=== PATIENT | female | born 1970 | race Caucasian/White ===

== ENCOUNTER 2020-04-06 12:47 | Outpatient (REF) | payer MEDICARE, MEDICAID, SELFPAY ==
--- NOTE | 2020-04-06 12:53 | MM_ITS ---
EXAMINATION: MM SCREENING DIGITAL BREAST TOMOSYNTHESIS, BILATERAL CLINICAL INFORMATION: Screening. Asymptomatic. The lifetime risk of breast cancer based on the Tyrer-Cuzick Model is 28%. COMPARISON: Mammography: 04/03/2017, 08/29/2014 TECHNIQUE: Digital breast tomosynthesis is performed in both the craniocaudal and mediolateral oblique views along with computer-aided detection (CAD). Synthesized 2D images are generated from the tomosynthesis. FINDINGS: There are scattered areas of fibroglandular density (ACR BI-RADS breast composition Category b). Breast tissue composition borders on predominantly fatty. Small asymmetry central right breast on CC view is stable from prior exams. Neither breast shows interval mass or architectural abnormality or developing density. No abnormal calcifications. Bilateral axillary nodes with abundant fatty jolene are stable. The skin contours are smooth. MM/MM tomosynthesis screening BI IMPRESSION: No significant changes from prior exams. ASSESSMENT: BI-RADS 2: Benign RECOMMENDATION: 1. Routine annual mammography screening. 2. The lifetime risk of breast cancer based on the Tyrer-Cuzick Model is 28%. Additional annual adjunct screening with breast MRI may be of benefit in women with a risk score of 20% or greater. This patient's information was entered into a reminder system with a target due date for their next mammogram.
== END 2020-04-06 12:48 | disposition home or self-care (01) ==
LOC: HO.MAMMO 12:47
PROVIDERS: PCP Internal Medicine; Visit Provider Internal Medicine
DX: Z12.31 Encounter for screening mammogram for malignant neoplasm of breast (principal)
CPT/HCPCS: 77063; 77067

== ENCOUNTER 2022-08-26 13:21 | Outpatient (REF) | payer MEDICARE, MEDICAID, SELFPAY ==
--- NOTE | ~2022-08-26 | MM_ITS ---
EXAMINATION: MM SCREENING DIGITAL BREAST TOMOSYNTHESIS, BILATERAL CLINICAL INFORMATION: Screening. Asymptomatic. The lifetime risk of breast cancer based on the Tyrer-Cuzick Model is 4%. COMPARISON: Mammography: 04/06/2020, 04/03/2017 TECHNIQUE: Digital breast tomosynthesis is performed in both the craniocaudal and mediolateral oblique views along with computer-aided detection (CAD). Synthesized 2D images are generated from the tomosynthesis. FINDINGS: There are scattered areas of fibroglandular density (ACR BI-RADS breast composition Category b). Breast tissue composition borders on predominantly fatty. Background stromal and fibroglandular densities are similar to prior studies. There is no developing density or interval architectural abnormality. There are no significant masses, abnormal calcifications, or other abnormalities. The axilla and skin contours are unremarkable. MM/MM tomosynthesis screening BI IMPRESSION: No mammographic evidence of malignancy. ASSESSMENT: BI-RADS 1: Negative RECOMMENDATION: Routine annual mammography screening. This patient's information was entered into a reminder system with a target due date for their next mammogram.
== END 2022-08-26 13:22 | disposition home or self-care (01) ==
LOC: HO.MAMMO 13:21
PROVIDERS: PCP Registered Nurse; Visit Provider Registered Nurse
DX: Z12.31 Encounter for screening mammogram for malignant neoplasm of breast (principal)
CPT/HCPCS: 77063; 77067

== ENCOUNTER 2023-07-31 10:11 | Outpatient (REF) | payer MEDICARE, MEDICAID, SELFPAY | END 2023-07-31 10:12 | disposition home or self-care (01) | LOC: HO.HHCL 10:11 | PROVIDERS: Visit Provider Nurse Practitioner Family | DX: N39.45 Continuous leakage (principal) | CPT/HCPCS: 87086 ==

== ENCOUNTER 2024-04-20 12:12 | Outpatient (REF) | payer MEDICARE, MEDICAID, SELFPAY ==
[2024-04-20 13:41] LABS: MANUAL DIFF FLAG NO
[2024-04-20 13:45] LABS: Creatinine Urine 60.77 mg/dL; Microalbum/Creatinine Ratio Ur 8.2 ug/mg cr (<30)
[2024-04-20 13:51] LABS: Basophils Absolute Auto 0.1 X10*3/uL (0.0-0.2); Basophils Percent Auto 0.5 % (0-2); Eosinophils Absolute Auto 0.3 X10*3/uL (0.0-0.4); Eosinophils Percent Auto 2.3 % (0-4); Hematocrit 39.6 % (37.0-47.0); Imm Gran Abs Auto 0.04 X10*3/uL (0.00-0.03); Imm Gran Pct Auto 0.3 % (0.0-0.4); Lymphocytes Absolute Auto 3.6 X10*3/uL (1.2-4.9); Lymphocytes Percent Auto 29.7 % (20-40); Mean Corpuscular HGB Conc 32.8 g/dl (31.0-35.0); Mean Corpuscular Volume 85.2 fL (80.0-98.0); Mean Platelet Volume 11.1 fL (9.4-12.3); Monocytes Absolute Auto 0.7 X10*3/uL (0.1-1.2); Monocytes Percent Auto 5.4 % (2-11); Neutrophils Absolute Auto 7.5 x10*3/uL (2.0-8.3); Neutrophils Percent Auto 61.8 % (45-73); Platelet Count 257 X10*3/uL (160-400); Red Blood Count 4.65 X10*6/uL (4.20-5.50); Red Cell Distribution Width 13.7 % (11.0-16.0); White Blood Count 12.1 X10*3/uL (4.8-10.8)
[2024-04-20 14:13] LABS: Alanine Aminotransferase 20 U/L (0-31); Albumin Level 4.3 g/dL (3.5-5.0); Alkaline Phosphatase 81 U/L (39-117); Anion Gap 8 (12-20); Aspartate Amino Transferase 18 U/L (5-31); Bilirubin Total 0.4 mg/dL (0.0-1.0); Blood Urea Nitrogen 14 mg/dL (9-16); Calcium 10.2 mg/dL (8.4-10.2); Carbon Dioxide 25 mmol/L (22-29); Chloride 109 mmol/L (96-108); Cholesterol 148 mg/dL (<200); Estimated Glomerular Filt Rate > 60; Glucose Random 68 mg/dL (60-115); HDL Cholesterol 40 mg/dL (>40); LDL Cholesterol Calculated 79 mg/dL (<100); Potassium 3.4 mmol/L (3.3-5.1); Sodium 139 mmol/L (135-145); Total Protein 7.3 g/dL (6.5-8.0); Triglycerides 145 mg/dL (<150)
[2024-04-20 14:30] LABS: Free T4 (Free Thyroxine) 1.03 ng/dL (0.71-1.85); TSH reflex Free T4 1.16 uIU/mL (0.32-4.0)
--- OUTSIDE RECORDS SUMMARY | 2024-04-20 14:32 | XMS_ITS | Encounter Summary ---
Author Organization [employer] Address [address] [facility] 7t [place] [address] Care Team Providers Care Oncology Consultant Name Role Phone Reyna Slaughter NP Primary Care Provider [phone] Reason for Visit * Reason Comments Med Refill Encounter Details Date Type Department Care Team ([facility] st Contact Info) Description 02/10/2024 Refill [facility] MED & PEDS [address] [place], [place] [phone] Reyna Slaughter NP [address] [facility] [place] [address] Chest pain, unspecified type Social History Tobacco Use Types Packs/Day Years Used Date Smoking Tobacco: Never Smokeless Tobacco: Never Alcohol Use Standard Drinks/Week Comments Never 0 (1 standard drink = 0.6 oz pur e alcohol) Depression Answer Date Recorded Patient Health Questionnaire-9 Score 0 04/22/2023 Patient Health Questionnaire-9 Score 0 04/22/2023 Last PHQ-9: Questionnaire Data Not on file 0 04/22/2023 Housing Stability Answer Date Recorded What is your housing situation today? I have arias fields 01/20/[address] you li ve. Do you have problems with any of the following? None of the above 01/20/2023 Food Insecurity Answer Date Recorded Within the past 12 months, y ou worried that your food would run out before you got money to buy more: Sometimes True 2023 Within the past 12 months,th e food you bought just didn't last and you didn't have enough money to get more: Sometimes True 04/15/2023 Transportation Answer Date Recorded In the past 12 months, has l ack of transportation kept you from medical appts, meetings, work or from getting things needed for daily living? No 01/20/2023 Utilities Answer Date Recorded In the past 12 months, has t he electric, gas, oil or water company threatened to shut off services in your home? No 01/20/2023 Depression Answer Date Recorded Patient Health Questionnaire-2 Score 0 04/22/2023 Comments Unknown Sex and Gender Information Value Date Recorded Sex Assigned at Female 01/20/2022 10:15 AM EDT Legal Sex Female 10:15 AM EDT Gender Identity Female 01/20/2022 10:15 AM EDT Sexual Orientation Straight 01/20/2022 10 :15 AM EDT documented as of this encounter Plan of Treatment Upcoming Encounters Date Type Department Care Team (Late st Contact Info) Description 07/15/2024 10:15 AM EDT Office Visit [facility] MEDICINE [address] [place] [address] Reyna Slaughter NP 230 [place] [address] documented as of this encounter Visit Diagnoses Diagnosis Chest pain, unspecified type documented in this encounter Additional Health Concerns Assessment Noted Time PHQ-9 Depression Total Score: 0 04/22/19 24 2:34 PM EST documented as of this encounter Care Teams Oncology Consultant Relationship Specialty Start Date End Date Reyna Slaughter NP [address] [place] [address] PCP - General Family Medicine 03/03/23 [facility] 07/03/15 documented as of this encounter
--- OUTSIDE RECORDS SUMMARY | 2024-04-20 14:32 | XMS_ITS | Encounter Summary ---
Author Organization [employer] Address [address] [place] [address] 7t [place] [address] Care Team Providers Care Aircraft Riveter Name Role Phone Reggie Terrence BAR Primary Care Provider Unavail able Natalia Johnson MD Primary Care Pro vider Reyna Slaughter NP Primary Care Provider [phone] Reason for Visit * Reason Comments Med Refill Encounter Details Date Type Department Care Team (Late st Contact Info) Description 04/03/2022 Refill [facility] [address] [place] [address] Chantale Roque MD 505 [place] [address] Type 2 diabetes mellitus with diabetic polyneuropathy, with long-term current use of insulin ([facility]) (Primary Dx); Other constipation; Anxiety; Chest pain, unspecified type Social History Tobacco Use Types Packs/Day Years Used Date Smoking Tobacco: Never Assessed Comments Unknown Sex and Gender Information Value Date Recorded Sex Assigned at Female 01/20/2022 10:15 AM EDT Legal Sex Female 10:15 AM EDT Gender Identity Female 01/20/2022 10:15 AM EDT Sexual Orientation Straight 01/20/2022 10 :15 AM EDT documented as of this encounter Miscellaneous Notes * Telephone Encounter - ERVIN Munguia - 04/04/2022 1:07 PM EST Approving, but needs appt for additional refills. documented in this encounter Plan of Treatment Upcoming Encounters Date Type Department Care Team (Late st Contact Info) Description 07/15/2024 10:15 AM EDT Office Visit [facility] MED[facility]INE [address] [place] [address] Reyna Slaughter NP [address] [place] [address] documented as of this encounter Visit Diagnoses Diagnosis Type 2 diabetes mellitus with diabetic polyneuropathy, with long-term current use of insulin ([facility])- Primary Other constipation Anxiety Anxiety state, unspecified Chest pain, unspecified type documented in this encounter Care Teams Aircraft Riveter Relationship Specialty Start Date End Date Terrence Paredes AGNP PCP - General Family Medicine 02/06/22 12/10/22 Natalia Johnson MD [address] [place] [address] PCP - General Internal Medicine 12/11/22 03/02/23 Reyna Slaughter NP [address] [place] [address] PCP - General Family Medicine 03/03/23 [facility] 07/03/15 documented as of this encounter
--- OUTSIDE RECORDS SUMMARY | 2024-04-20 14:32 | XMS_ITS | Encounter Summary ---
Author Organization [employer] Address [address] [place] [address] [address]t [place] [address] Care Team Providers Care Chain Carrier Name Role Phone Terrence Paredes Primary Care Provider Unavail able Natalia Johnson MD Primary Care Pro vider Reyna Slaughter NP Primary Care Provider [phone] Encounter Details Date Type Department Care Team (Late st Contact Info) Description 04/03/2022 Orders Only [facility] CHC MED & PEDS [address] [place] [address] Ese Gallardo LPN Social History Tobacco Use Types Packs/Day Years [...] Description 07/15/2024 10:15 AM EDT Office Visit [facility] MEDICINE [address] [place] [address] Reyna Slaughter NP [address] [place], [place] [phone] documented as of this encounter Visit Diagnoses Not on filedocumented in this encounter Care Teams Chain Carrier Relationship Specialty Start Date End Date Terrence Paredes AGNP PCP - General Family Medicine 02/06/22 12/10/22 Natalia Johnson MD [address] [place] [address] PCP - General Internal Medicine 12/11/22 03/02/23 Reyna Slaughter NP [address] [place] [address] PCP - General Family Medicine 03/03/23 [facility] 07/03/15 documented as of this encounter
--- OUTSIDE RECORDS SUMMARY | 2024-04-20 14:32 | XMS_ITS | Encounter Summary ---
Author Organization [employer] Address [address] [place] [address] 7t [place] [address] Care Team Providers Care Fire Officer Name Role Phone Reggie Terrence BAR Primary Care Provider Unavail able Natalia Johnson MD Primary Care Pro vider Reyna Slaughter NP Primary Care Provider [phone] Encounter Details Date Type Department Care Team (Late Contact Info) Description 08/05/2022 Orders Only [facility] [address] [place] [address] [phone] Lisa Ozuna LPN Social History Tobacco Use Types Packs/Day Years Used Date Smoking Tobacco: Never Smokeless Tobacco: Never Depression Answer Date Recorded Patient Health Questionnaire-9 Score 2 06/11/2022 Depression Answer Date Recorded Patient Health Questionnaire-2 Score 0 06/11/2022 Comments Unknown Sex and Gender Information Value Date Recorded Sex Assigned at Female 01/20/2022 10:15 AM EDT Legal Sex Female 10:15 AM EDT Gender Identity Female 01/20/2022 10:15 AM EDT Sexual Orientation Straight 01/20/2022 10 :15 AM EDT COVID-19 Exposure Response Date Recorded In the last 10 days, have yo u been in contact with someone who was confirmed or suspected to have Coronavirus/COVID-19? No / Unsure 07/25/2022 2:06 PM EDT documented as of this encounter Plan of Treatment Upcoming Encounters Date Type Department Care Team (Late Contact Info) Description 07/15/2024 10:15 AM EDT Office Visit [facility] [address] [place] [address] [phone] Reyna Slaughter NP [address] [place], [place] [phone] documented as of this encounter Procedures Procedure Name Priority Date/Time Associated Diagnosis Comments BI MAMMOGRAM SCREENING TOMOSYNTHESIS BILATERAL Routine 08/26/2022 1:45 PM EDT documented in this encounter Results * BI Mammogram Screening Tomosynthesis Bilateral (08/26/2022 1:45 PM EDT) Anatomical Region Laterality Modality Breast Bilateral Mammography 08/26/2022 1:45 PM EDT Narrative 08/29/2022 11:21 AM EDT ? [facility] ? [address] ?[place] [address] ? Mammography Report ? Signed ? Patient: Faina Brand ?MR#: [id number] ? : 1970 ?Acct:[id number] ? Age/Sex: 52 / F ?ADM Date: 08/26/22 ? Loc: HO.MAMMO ? Attending Dr: Terrence Paredes SUPERVISOR ACCOUNTS RECEIVABLE ? Ordering Physician: Terrence Paredes SUPERVISOR ACCOUNTS RECEIVABLE ?Results: 1Negativ ?? e ? Date of Service: 08/26/22 ?Follow Up: 1 Year From Orig ?? inal Mammogram ? Procedure(s): MM tomosynthesis screening BI ?? Accession Number(s): [id number] ? cc: Terrence Paredes SUPERVISOR ACCOUNTS RECEIVABLE ? EXAMINATION: ?? MM SCREENING DIGITAL BREAST TOMOSYNTHESIS, BILATERAL ? CLINICAL INFORMATION: ? Screening. Asymptomatic. ? The lifetime risk of breast cancer based on the Tyrer-Cuzick Model is ?? 4%. ? COMPARISON: ?? Mammography: 04/06/2020, 04/03/2017 ? TECHNIQUE: ?? Digital breast tomosynthesis is performed in both the craniocaudal and ?? mediolateral oblique views along with computer-aided detection (CAD). ?? Synthesized 2D images are generated from the tomosynthesis. ? FINDINGS: ?? There are scattered areas of fibroglandular density (ACR BI-RADS breast ?? composition Category b). ? Breast tissue composition borders on predominantly fatty. Background ?? stromal and fibroglandular densities are similar to prior studies. ?? There is no developing density or interval architectural abnormality. ?? There are no significant masses, abnormal calcifications, or other ?? abnormalities. ?? The axilla and skin contours are unremarkable. ? MM/MM tomosynthesis screening BI ?? IMPRESSION: ?? No mammographic evidence of malignancy. ? ASSESSMENT: ? BI-RADS 1: Negative ? RECOMMENDATION: ?? Routine annual mammography screening. ? This patient's information was entered into a reminder system with a ?? target due date for their next mammogram. ? Dictated By: ?Jose Salas MD ? Signed By: ?<Electronically signed by Jose Salas MD in OV> ?08/29/22 1118 ? DD/ 1345 ? TD/TT: ? Heel Shaver: ALEXIS ? Procedure Note Terry, Image - 09/18/2022 [facility] [address] [place] [address] Dr. Larios, [place] [address] Mammography Report Signed Patient: Kam Brand#: [id number] : 1970Acct:[id number] Age/Sex: 52 / FADM Date: 08/26/22 Loc: HO.MAMMO Attending Dr: Terrence Paredes SUPERVISOR ACCOUNTS RECEIVABLE Ordering Physician: Terrence Paredes NPResults: 1Negativ e Date of Service: 06/06/23Follow Up: 1 Year From Orig ina Mammogram Procedure(s): MM tomosynthesis screening BI Accession Number(s): [id number] cc: Terrence Paredes SUPERVISOR ACCOUNTS RECEIVABLE EXAMINATION: MM SCREENING DIGITAL BREAST TOMOSYNTHESIS, BILATERAL CLINICAL INFORMATION: Screening. Asymptomatic. The lifetime risk of breast cancer based on the Tyrer-Cuzick Model is 4%. COMPARISON: Mammography: 04/06/2020, 04/03/2017 TECHNIQUE: Digital breast tomosynthesis is performed in both the craniocaudal and mediolateral oblique views along with computer-aided detection (CAD). Synthesized 2D images are generated from the tomosynthesis. FINDINGS: There are scattered areas of fibroglandular density (ACR BI-RADS breast composition Category b). Breast tissue composition borders on predominantly fatty. Background stromal and fibroglandular densities are similar to prior studies. There is no developing density or interval architectural abnormality. There are no significant masses, abnormal calcifications, or other abnormalities. The axilla and skin contours are unremarkable. MM/MM tomosynthesis screening BI IMPRESSION: No mammographic evidence of malignancy. ASSESSMENT: BI-RADS 1: Negative RECOMMENDATION: Routine annual mammography screening. This patient's information was entered into a reminder system with a target due date for their next mammogram. Dictated By: Jose Salas MD Signed By: <Electronically signed by Jose Salas MD in OV> 08/29/22 1118 DD/ 1345 TD/TT: Heel Shaver: ALEXIS [facility] External Provider IMG BI PROCEDURES Final Result documented in this encounter Visit Diagnoses Not on filedocumented in this encounter Additional Health Concerns Assessment Noted Time PHQ-9 Depression Total Score: 2 06/12/19 23 2:44 PM EDT documented as of this encounter Care Teams Fire Officer Relationship Specialty Start Date End Date Terrence Paredes AGNP PCP - General Family Medicine 02/06/22 12/10/22 Natalia Johnson MD [address] [place] [address] PCP - General Internal Medicine 12/11/22 03/02/23 Reyna Slaughter NP [address] [place] [address] PCP - General Family Medicine 03/03/23 [facility] 07/03/15 documented as of this encounter
--- OUTSIDE RECORDS SUMMARY | 2024-04-20 14:32 | XMS_ITS | Encounter Summary ---
Author Organization [employer] Address [address] [facility] 7t [place] [address] Care Team Providers Care Flight Attendant Inflight Services Name Role Phone Terrence Paredes Primary Care Provider Unavail able Natalia Johnson MD Primary Care Pro vider Reyna Slaughter NP Primary Care Provider [phone] Reason for Visit * Reason Comments Med Refill Encounter Details Date Type Department Care Team ([facility] Contact Info) Description 07/24/2022 Refill [facility] CHC MED & PEDS [address] [place] [address] Terrence Paredes AGNP Primary hypertension Social History Tobacco Use Types Packs/Day Years [...] Description 07/15/2024 10:15 AM EDT Office Visit [facility] MEDICINE [address] [place] [address] Reyna Slaughter NP [address] [place] [address] documented as of this encounter Visit Diagnoses Diagnosis Primary hypertension Unspecified essential hypertension documented in this encounter Additional Health Concerns Assessment Noted Time PHQ-9 Depression Total Score: 2 06/12/19 2:44 PM EDT documented as of this encounter Care Teams Flight Attendant Inflight Services Relationship Specialty Start Date End Date Terrence Paredes AGNP PCP - General Family Medicine 02/06/22 12/10/22 Natalia Johnson MD 230 [place] [address] PCP - General Internal Medicine 12/11/22 03/02/23 Reyna Slaugther NP [address] [place] [address] PCP - General Family Medicine 03/03/23 [facility] 07/03/15 documented as of this encounter
--- OUTSIDE RECORDS SUMMARY | 2024-04-20 14:32 | XMS_ITS | Encounter Summary ---
Author Organization [employer] Address [address] [facility] 7t [place] [address] Care Team Providers Care System Development Manager Name Role Phone Reyna Slaughter ELAINE Primary Care Provider [phone] Reason for Visit * Reason Comments Med Refill Encounter Details Date Type Department Care Team ([facility] st Contact Info) Description 05/14/2023 Refill [facility] [address] [place], [place] [phone] Name, MD Nixon [address] [place] [address] Type 2 diabetes mellitus with other specified complication, with long-term current use of insulin ([facility]) Social History Tobacco Use Types Packs/Day Years [...] Description 07/15/2024 10:15 AM EDT Office Visit [facility] MEDICINE [address] [place] [address] Reyna Slaughter NP [address] [place] [address] documented as of this encounter Visit Diagnoses Diagnosis Type 2 diabetes mellitus with other specified complication, with long-term current use of insulin ([facility]) documented in this encounter Additional Health Concerns Assessment Noted Time PHQ-9 Depression Total Score: 0 04/22/19 24 2:34 PM EST documented as of this encounter Care Teams System Development Manager Relationship Specialty Start Date End Date Reyna Slaughter NP [address] [place] [address] PCP - General Family Medicine 03/03/23 [facility] 07/03/15 documented as of this encounter
--- OUTSIDE RECORDS SUMMARY | 2024-04-20 14:32 | XMS_ITS | Encounter Summary ---
Author Organization [facility] [employer] Address [address] [place] [address] 7t [place] [address] Care Team Providers Care Mine Car Repairer Name Role Phone Terrence Paredes Primary Care Provider Unavail able Natalia Johnson MD Primary Care Pro vider Reyna Slaughter NP Primary Care Provider [phone] Reason for Visit * Reason Onset Date Comments triage 04/03/2022 Encounter Details Date Type Department Care Team (Late st Contact Info) Description 04/03/[address] [address] Terrence Paredes AGNP triage Social History Tobacco Use Types Packs/Day Years Used Date Smoking Tobacco: Never Assessed Comments Unknown Sex and Gender Information Value Date Recorded Sex Assigned at Female 01/20/2022 10:15 AM EDT Legal Sex Female 10:15 AM EDT Gender Identity Female 01/20/2022 10:15 AM EDT Sexual Orientation Straight 01/20/2022 10 :15 AM EDT documented as of this encounter Miscellaneous Notes * Telephone Encounter - Remy Orr - 04/03/2022 11:17 AM EST Symptom: High Blood Pressure - Caller Reports Outcome: Schedule an urgent appointment (within 1 hour) or talk to a nurse or provider soon Reason: Getting worse The caller accepted this outcome documented in this encounter Plan of Treatment Upcoming Encounters Date Type Department Care Team (Late st Contact Info) Description 07/15/2024 10:15 AM EDT Office Visit [address] [address] Reyna Slaughter NP [address] [place] [address] documented as of this encounter Visit Diagnoses Not on filedocumented in this encounter Care Teams Mine Car Repairer Relationship Specialty Start Date End Date Terrence Paredes AGNP PCP - General Family Medicine 02/06/22 12/10/22 Natalia Johnson MD [address] [place] [address] PCP - General Internal Medicine 12/11/22 03/02/23 Reyna Slaughter NP [address] [place] [address] PCP - General Family Medicine 03/03/23 [facility] 07/03/15 documented as of this encounter
--- OUTSIDE RECORDS SUMMARY | 2024-04-20 14:32 | XMS_ITS | Clinical Summary ---
Author Organization [employer] Address [address] [place] [address] [address] [place] [address] Care Team Providers Care Public Health Social Worker Name Role Phone Reyna Slaughter ELAINE Primary Care Provider [phone] Allergies No known active allergies Medications Blood Glucose Monitoring Suppl (ApnaPaisaStyle [place] Lite) w/Device kit USE TO CHECK BLOOD SUGAR FOUR TIMES A DAY 1 kit 2022 Active sennosides (Senokot) 8.6 MG tabletIndications:Chr onic constipation TAKE 1 TABLET BY MOUTH TWICE A DAY IF NEEDED FOR CONSTIPATION 180 tablet 2022 Active Continuous Blood Gluc Machine Operator Transplanter (FreeStyle Jose Miguel 2 [place]) deviceIndications:Typ e 2 diabetes mellitus with other specified complication, with long-term current use of insulin ([facility]) 1 each continuously. 1 each 2022 Active Continuous Blood Gluc Sensor (FreeStyle Jose Miguel 2 Sensor) miscIndications:Type 2 diabetes mellitus with other specified complication, with long-term current use of insulin ([facility]) USE 4 (FOUR) TIMES DAILY 2 each 2 2022 Active TRUEplus Lancets 33G misc 1 each 4 times daily. TEST BLOOD SUGAR 4 TIMES A DAY 100 each 11 2022 Active ARIPiprazole (Abilify) 10 MG tablet Take 10 mg by mouth in the morning. 2023 Active lithium ER (Lithobid) 300 MG 12 hr tablet Take 2 tablets by mouth Once daily. 2022 Active atorvastatin (Lipitor) 20 MG tablet TAKE 1 TABLET BY MOUTH ONCE DAILY 90 tablet 3 2023 Active dulaglutide (Trulicity) 0.75 MG/0.5ML solution pen-injectorIndicatio ns:Type 2 diabetes mellitus with other specified complication, with long-term current use of insulin ([facility]) Inject 0.75 mg under the skin 1 (one) time per week. 4 each 2023 Active NovoLOG FLEXPEN 100 UNIT/ML penIndications:Type 2 diabetes mellitus with other specified complication, with long-term current use of insulin ([facility]) INJECT 20 UNITS SUBCUTANEOUSLY 3 (THREE) TIMES A DAY BEFORE MEALS 15 mL 1 2023 Active Alcohol Swabs (B-D SINGLE USE SWABS REGULAR) padsIndications:Type 2 diabetes mellitus with other specified complication, with long-term current use of insulin ([facility]) USE TO TEST FINGER STICK BLOOD SUGAR ONCE DAILY 100 each 7 2023 Active metoprolol succinate XL (Toprol-XL) 25 MG 24 hr tabletIndications:Katherine archer hypertension TAKE 1 TABLET BY MOUTH ONCE DAILY 90 tablet 1 2023 Active aspirin (Aspirin Low Dose) 81 MG EC tabletIndications:Mita st pain, unspecified type TAKE 1 TABLET BY MOUTH ONCE DAILY 90 tablet 1 2023 Active glucose blood (FREESTYLE LITE) test stripIndications:Type 2 diabetes mellitus with other specified complication, with long-term current use of insulin ([facility]) USE TO TEST BLOOD SUGAR FOUR TIMES A DAY 100 each 11 2023 Active Polyethylene Glycol 3350 (PEG 3350) 17 GM/SCOOP powderIndications:Oth er constipation DISSOLVE 1 SCOOP (17 GRAMS) IN WATER OR JUICE AND TAKE ONCE DAILY 510 g 3 2023 Active cyanocobalamin (Vitamin B-12) 1000 MCG tabletIndications:Katherine archer hyperparathyroidism ([facility]/HCC) TAKE 1 TABLET BY MOUTH ONCE DAILY 30 tablet 3 2023 Active omeprazole (PriLOSEC) [address] capsule TAKE 1 CAPSULE BY MOUTH ONCE DAILY BEFORE A MEAL 30 capsule 5 2023 Active acetaminophen (Tylenol) 325 MG tablet TAKE 2 TABLETS BY MOUTH EVERY 6 HOURS FOR PAIN 90 tablet 2023 Active insulin pen needle (Comfort EZ Pen [place]) 32G x 4 mm misc USE TO INJECT INSULIN 4 (FOUR) TIMES DAILY 200 each 2023 Active docusate sodium (Colace) 100 MG capsuleIndications:Ch ronic idiopathic constipation TAKE 1 CAPSULE BY MOUTH two (2) times a day NEEDED 180 capsule 1 2024 Active cholecalciferol VITAMIN D (Vitamin D-3) 50 MCG (1999 [place]) capsuleIndications:Pr imary hyperparathyroidism ([facility]/HCC) TAKE 1 CAPSULE BY MOUTH ONCE DAILY 90 capsule 1 2024 Active amitriptyline (Elavil) 25 MG tabletIndications:Lakshmi betic polyneuropathy associated with type 2 diabetes mellitus ([facility]) TAKE 1 TABLET BY MOUTH AT BEDTIME 30 tablet 5 2024 Active hydrOXYzine HCl (Atarax) 25 MG tabletIndications:Anx iety TAKE 1 TABLET BY MOUTH 3 (THREE) TIMES A DAY NEEDED 90 tablet 2024 Active insulin degludec (Tresiba FlexTouch) 200 UNIT/ML injectionIndications: Type 2 diabetes mellitus with diabetic polyneuropathy, with long-term current use of insulin ([facility]) Inject 86 Units under the skin in the morning. 15 mL 3 08/17 Active econazole nitrate 1 % creamIndications:Edith a pedis of both feet Apply topically between affected toes for 1 week 30 g 2024 Active ibuprofen 600 MG tablet Take 1 tablet (600 mg) by mouth every 6 (six) hours if needed for mild pain for up to 14 days. 56 tablet 05/04 Active docusate sodium (Colace) 100 MG capsuleIndications:Ch ronic idiopathic constipation TAKE 1 CAPSULE BY MOUTH two (2) times a day NEEDED 180 capsule 1 03/24 Discontinued amitriptyline (Elavil) 25 MG tabletIndications:Lakshmi betic polyneuropathy associated with type 2 diabetes mellitus ([facility]) TAKE 1 TABLET BY MOUTH AT BEDTIME 30 tablet 5 03/28 Discontinued Tresiba FlexTouch 200 UNIT/ML injectionIndications: Type 2 diabetes mellitus with diabetic polyneuropathy, with long-term current use of insulin ([facility]) INJECT 85 UNITS SUBCUTANEOUSLY ONCE DAILY 15 mL 3 03/30 Discontinued( Reorder (will not trigger notification to Pharmacy)) clotrimazole (Lotrimin) 1 % cream APPLY TO THE AFFECTED AREA two (2) times a day 30 g 3 04/20 Discontinued( Med list cleanup (will not trigger notification to Pharmacy)) ketoconazole (NIZOral) 2 % shampoo APPLY BY TOPICAL ROUTE 3X/WEEK TO THE AFFECTED AREA(S), LATHER, LEAVE IN PLACE FOR 5 MINUTES, AND THEN RINSE OFF WITH WATER 240 mL 1 04/20 Discontinued( Med list cleanup (will not trigger notification to Pharmacy)) cholecalciferol VITAMIN D (Vitamin D-3) 50 MCG (1999) capsuleIndications:Pr imary hyperparathyroidism (CMS/HCC) TAKE 1 CAPSULE BY MOUTH ONCE DAILY 90 capsule 03/24 Discontinued hydrOXYzine HCl (Atarax) 25 MG tabletIndications:Anx iety TAKE 1 TABLET BY MOUTH 3 (THREE) TIMES A DAY NEEDED 90 tablet 03/30 Discontinued Active Problems Problem Noted Date Diagnosed Date Atypical chest pain 09/25/2023 Assessment & Plan (09/25/2023 5:46 PM EDT): Pt with vague sensation of chest pain, intermittent, initially declines cardiology referral, reviewed s/s requiring 9-11 Pt willing to comply with referral Vertigo 07/31/2023 Assessment & Plan (09/25/2023 5:41 PM EDT): See above, reassuring neuro exam Continuous leakage of urine 07/31/2023 Abnormal neurological exam 07/31/2023 Assessment & Plan (09/25/2023 5:41 PM EDT): Intermittent vertigo, pt to monitor, declines medication today, wnl neuroexam except positive gayleberg Routine screening for STI (sexually transmitted infection) 07/27/2023 Assessment & Plan (07/27/2023 8:13 PM EDT): -order placed to evaluate for hepatitis immunity Routine adult health maintenance 10/29/2022 Assessment & Plan (07/27/2023 8:12 PM EDT): -PCV 20 and flu vaccines received today -will attempt to obtain previsous pap and mammogram results -discuss health maintenance further at next visit Class 1 obesity 08/25/2022 Severe obesity (BMI 35.0-39.9) with comorbidity 08/25/2022 Drug-induced nausea and vomiting 07/25/2022 Assessment & Plan (07/25/2022 5:20 PM EDT): Patient gets her trulicity shot on sundays, and feels nauseous thu-thu. I explained that, this side effect is dose dependent and we will just reduce the trulicity and follow up together trulicity reduced from 3 mg to 1.5 mg F/up 1 month Primary hyperparathyroidism 07/27/2020 Anxiety 12/25/2017 Gastroesophageal reflux disease without esophagi tis 08/13/2016 Diabetic polyneuropathy 11/28/2015 Bipolar disorder 02/23/2012 Assessment & Plan (06/11/2022 5:36 PM EDT): PHQ9 = 2. Patient reports being happy at the moment and feeling stable. Hyperprolactinemia 02/23/2012 Dermatophytosis 08/25/2011 Pure hypercholesterolemia 08/25/2011 Assessment & Plan (07/27/2023 8:18 PM EDT): -patient with history of elevated lipids. Labs ordered to evaluate current levels Assessment & Plan (07/25/2022 3:44 PM EDT): Patient in today due to medication induced nausea, I will bring up atorvastatin 10 mg in a month when her nausea hopefully goes away and we follow up for DM2 Type 2 diabetes mellitus 08/25/2011 Overview (05/06/2023): A1c 5.2 (04/22/23) Medications: trulicity, novolog flexpen, tresiba Assessment & Plan (09/25/2023 5:43 PM EDT): Stable, continue current regimen, reviewed s/s of low blood sugar Pt endorses a vague sensation of chest pain on occasion, cardiology referral offered, pt declines, extensive conversation around s/s that require calling 911. Pt verbalized understanding, reluctantly agrees to cardiology referrla Assessment & Plan (07/27/2023 8:10 PM EDT): -A1c at goal of <7. POCT A1c 5.9% today -POCT glucose reading 60 mg/dL -unable to discuss plan with patient as she left before the visit was complete -I called the patient's daughter to inform the patient to decrease tresiba dose to 80 U daily rather than 85 U -will schedule follow-up in 1 week Assessment & Plan (06/11/2022 5:34 PM EDT): Readings vary from 112 to 170 mixed post and preprandial. I do not want to alter her DM2 medications at this time. Patient to continue current therapies. Resolved Problems Problem Noted Date Diagnosed Date Resolved Date Serum calcium elevated 06/13/202206/13 Encounters Date Type Department Care Team Description 04/20/2024 10:45 AM EST Office Visit [address] [phone] Reyna Slaughter NP Screening for colon cancer (Primary Dx); Type 2 diabetes mellitus with other specified complication, with long-term current use of insulin ([facility]); Screening examination for STI; Encounter for health-related screening; Encounter for screening mammogram for malignant neoplasm of breast; Tinea pedis of both feet 04/15/[address] [address] Lata Cornelius MA chartprep 04/12/[address] [address] Reyna Slaughter NP Nurse Triage 03/30/2024 Orders Only [address] [phone] Reyna Slaughter NP Type 2 diabetes mellitus with diabetic polyneuropathy, with long-term current use of insulin (CMS/HCC) 03/30/2024 Refill [facility] [address] [place] [address] Reyna Slaughter NP Anxiety 03/30/2024 Telephone [facility] [address] [place] [phone] Reyna Slaughter NP Medication Question 03/26/2024 Refill [facility] [address] [place] [address] Reyna Slaughter NP Diabetic polyneuropathy associated with type 2 diabetes mellitus ([facility]) 03/22/2024 Refill [facility] [address] [place] [address] Reyna Slaughter NP Chronic idiopathic constipation; Primary hyperparathyroidism ([facility]) 03/07/2024 Refill [facility] [address] [place] [address] Natalia Johnson MD 02/14/2024 Refill [facility] [address] [place] [address] Reyna Slaughter NP Anxiety 02/14/2024 Refill [facility] [address] [place] [address] Doris Brandon MD Anxiety 02/10/2024 Refill [facility] [address] [place] [address] Reyna Slaughter NP Chest pain, unspecified type 02/03/2024 Refill [facility] [address] [place] [address] Reyna Slaughter NP 01/26/2024 Refill [facility] [address] [place] [phone] Reyna Slaughter NP Primary hyperparathyroidism ([facility]) from Last 3 Months Immunizations Name Administration Dates Next Due Hep B, adult 09/02/2007 Influenza injectable quadriv alent IIV4 with preservative 12/25/2017,04/20/2017 Influenza injectable quadriv alent preservative free 04/22/2023,02/05/2021 Influenza, IIV3, injectable 06/07/2015, 0 MMR 09/28/2008 Pneumococcal Conjugate PCV 20 04/22/2023 Pneumococcal Polysaccharide PPSV23 10/04/2010 Rabies Immune Globulin 06/04/2010 Rabies, IM Diploid Cell Culture 06/19/19 11,06/11/2010,06/07/2010,06/04 TD (adult), 2 Lf tetanus tox oid, preservative free, adsorbed 09/28/2008 Tdap 04/20/2017 Zoster, Recombinant 03/28/2019 Social History Tobacco Use Types Packs/Day Years Used Date Smoking Tobacco: Never Smokeless Tobacco: Never Tobacco Cessation:Counseling Given: Not Answered Alcohol Use Standard Drinks/Week Comments Never 0 (1 standard drink = 0.6 oz pur e alcohol) Depression Answer Date Recorded Patient Health Questionnaire-9 Score 0 04/20/2024 Patient Health Questionnaire-9 Score 0 04/20/2024 Last PHQ-9: Questionnaire Data Not on file 0 04/20/2024 Housing Stability Answer Date Recorded What is your housing situation today? I have [employer] 01/20/[address] you [...] Date Recorded Patient Health Questionnaire-2 Score 0 04/20/2024 Comments Unknown Sex and Gender Information Value Date Recorded Sex Assigned at Female 01/20/2022 10:15 AM EDT Legal Sex Female 10:15 AM EDT Gender Identity Female 01/20/2022 10:15 AM EDT Sexual Orientation Straight 01/20/2022 10 :15 AM EDT Last Filed Vital Signs Vital Sign Reading Time Taken Comments Blood Pressure 140/89 04/20/2024 11:23 AM EST Pulse 88 04/20/2024 11:23 AM EST Temperature 35.7 ??C (96.3 ??F) 04/20/2024 11:[address] Respiratory Rate 22 04/20/2024 11:23 AM EST Oxygen Saturation 98% 04/20/2024 11:23 AM EST Inhaled Oxygen Concentration - - Weight 75.3 kg (166 lb) 04/20/2024 11:23 AM EST Height 157.5 cm (5' 2 ) 04/20/2024 11:23 AM EST Body Mass Index 30.36 04/20/2024 11:23 AM EST Plan of Treatment Upcoming Encounters Date Type Department Care Team (Late st Contact Info) Description 07/15/2024 10:15 AM EDT Office Visit [facility] [address] [place] [address] Reyna Slaughter NP [address] [place], [place] [phone] Health Maintenance Due Date Last Done Comments CT Colonography 1968 Colonoscopy 1968 Colorectal Cancer Screening 1968 FIT DNA/Cologuard 1968 FIT 1968 FOBT 1968 HIV Screening 1968 Sigmoidoscopy 1968 Diabetes: Foot Exam 1978 Eye Exam 1978 Alcohol/Substance Use Screening 1980 Hepatitis C Screening 1986 Pap Smear 1989 Cervical Cancer Screening 1998 HPV/Cotest 1998 Hepatitis B Vaccines (2 of 3 - 19+ 3-dose series) 09/30/2007 09/02/2007 Zoster Vaccines (2 of 2) 05/23/2019 03/28/2019 Mammogram 08/27/2023 08/26/2022, 06/0 08/2022, 04/06/2020, Additional history exists COVID-19 Vaccine ( season) 2023 03/09/2022, 04/09/2021, 03/18/2021 Influenza Vaccine (#1) 2023 , 02/05/2021, 12/25/2017, Additional history exists SDOH Screening 04/15/2024 04/15/2023 Tobacco Screening 07/30/2024 07/31/2023 Diabetes: Hemoglobin A1C 10/18/2024 025, 07/31/2023, 04/22/2023, Additional history exists Depression Screening 04/20/2025 04/20/2024, 04/20/19 Diabetes: Urine Protein Screening 04/20/2025 04/20/2024, 06/11/2022 Lipid Panel 04/20/2025 04/20/2024, 05/22, 07/17/2020 DTaP/Tdap/Td Vaccines (2 - Td or Tdap) 04/20/2027 04/20/2017, 09/28/2008 RSV Patients and Patients Aged 60 years or older (1 - 1-dose 75+ series) 2043 Pneumococcal Vaccine: 50+ Years Completed 04/22/2023, 10/04/2010 HIB Vaccines Aged Out No longer eligi ble based on patient's age to complete this topic HPV Vaccines Aged Out No longer eligi ble based on patient's age to complete this topic Hepatitis A Vaccines Aged Out No long er eligible based on patient's age to complete this topic IPV Vaccines Aged Out No longer eligi ble based on patient's age to complete this topic Meningococcal Vaccine Aged Out No joe dennis eligible based on patient's age to complete this topic RSV under 20 months Aged Out No longe r eligible based on patient's age to complete this topic Rotavirus Vaccines Aged Out No longer eligible based on patient's age to complete this topic Procedures Procedure Name Priority Date/Time Associated Diagnosis Comments COMPREHENSIVE METABOLIC PANEL Routine 04/20/2024 12:16 PM EST Type 2 diabetes mellitus with other specified complication, with long-term current use of insulin ([facility]) ALBUMIN, RANDOM URINE W/CREATININE Routine 04/20/2024 12:16 PM EST Type 2 diabetes mellitus with other specified complication, with long-term current use of insulin ([facility]) CBC WITH AUTO DIFFERENTIAL Routine 04/20/2024 12:16 PM EST Encounter for health-related screening T4, FREE Routine 04/20/2024 12:16 PM EST Type 2 diabetes mellitus with other specified complication, with long-term current use of insulin (CMS/HCC) TSH W/REFLEX TO FT4 Routine 04/20/2024 12:16 PM EST Type 2 diabetes mellitus with other specified complication, with long-term current use of insulin (CMS/HCC) LIPID PANEL, STANDARD Routine 04/20/2024 12:16 PM EST Pure hypercholesterolemia POCT GLYCATED HEMOGLOBIN, TOTAL Routine 04/20/2024 11:29 AM EST Type 2 diabetes mellitus with other specified complication, with long-term current use of insulin (CMS/HCC) POCT GLUCOSE Routine 04/20/2024 11:28 AM EST Type 2 diabetes mellitus with other specified complication, with long-term current use of insulin (CMS/HCC) BI MAMMOGRAM SCREENING TOMOSYNTHESIS BILATERAL Routine 08/26/2022 1:45 PM EDT from Last 3 Months or Most Recently Relevant to Health Maintenance Results * TSH W/Reflex to FT4 (04/20/2024 12:16 PM EST) TSH reflex Free T4 1.16 0.32 - 4.0 uIU/mL [facility] Blood Venous blood specimen / Unknown 04/20/2024 12:16 PM EST 04/20/2024 1:40 PM EST Reyna Slaughter SENIOR EXECUTIVE COMPENSATION ANALYST LAB BLOOD ORDERABLES Final Resu lt [facility] [address] [place] [phone] * Albumin, Random Urine W/Creatinine (04/20/2024 12:16 PM EST) Creatinine, Urine 60.77 mg/dL [facility] Microalbumin Urine 5.0 mg/L H [facility] Microalbum Creatinine Ratio Ur 8.2 <30 ug/mg cr [facility] Comment:Albumin/Creatinine R atio Reference Ranges: Normal: < 30 ug/mg creatinine Microalbuminuria: 30 - 300 ug/mg creatinineClinical Albuminuria: > 300 ug/mg creatinine Urine (Urine, Random) 04/20/2024 12:16 PM EST 04/20/2024 1:13 PM EST us Reyna Kerwinm SENIOR EXECUTIVE COMPENSATION ANALYST LAB URINE ORDERABLES Final Resu lt [facility] [address] [place] [phone] * (ABNORMAL) CBC auto differential (04/20/2024 12:16 PM EST) White Blood Count 12.1(H) 4.8 - 10.8 X10*3/uL [facility] Red Blood Count 4.65 4.20 - 5.50 X10*6/uL [facility] Hemoglobin 13.0 12.0 - 16.0 g/dl [facility] Hematocrit 39.6 37.0 - 47.0 % [facility] Mean Corpuscular Volume 85.2 80.0 - 98.0 fL [facility] Mean Corpuscular Hemoglobin 28.0 27.0 - 33.0 pg [facility] Mean Corpuscular HGB Conc 32.8 31.0 - 35.0 g/dl [facility] Red Cell Distribution Width 13.7 11.0 - 16.0 % [facility] Platelet Count 257 160 - 400 X10*3/uL [facility] Mean Platelet Volume 11.1 9.4 - 12.3 fL [facility] Neutrophils Percent Auto 61.8 45 - 73 % [facility] Imm Gran Pct Auto 0.3 0.0 - 0.4 % [facility] Lymphocytes Percent Auto 29.7 20 - 40 % [facility] Monocytes Percent Auto 5.4 2 - 11 % [facility] Eosinophils Percent Auto 2.3 0 - 4 % [facility] Basophils Percent Auto 0.5 0 - 2 % [facility] NRBC Pct Auto 0.0 0.0 - 0.2 /100WBC [facility] Neutrophils Absolute Auto 7.5 2.0 - 8.3 x10*3/uL [facility] Imm Gran Abs Auto 0.04(H) 0.00 - 0.03 X10*3/uL [facility] Lymphocytes Absolute Auto 3.6 1.2 - 4.9 X10*3/uL [facility] Monocytes Absolute Auto 0.7 0.1 - 1.2 X10*3/uL [facility] Eosinophils Absolute Auto 0.3 0.0 - 0.4 X10*3/uL [facility] Basophils Absolute Auto 0.1 0.0 - 0.2 X10*3/uL [facility] NRBC Abs Auto 0.000 0.0 - 0.012 X10*3/uL [facility] Blood Venous blood specimen / Unknown 04/20/2024 12:16 PM EST 04/20/2024 1:38 PM EST [facility] SENIOR EXECUTIVE COMPENSATION ANALYST LAB BLOOD ORDERABLES Final Resu lt Performing Organization Address City/[facility]/ZIP Co de Phone Number [facility] [address] [place] [phone] * T4, Free (04/20/2024 12:16 PM EST) Free T4 (Free Thyroxine) 1.03 0.71 - 1.85 ng/dL [facility] Blood Venous blood specimen / Unknown 04/20/2024 12:16 PM EST 04/20/2024 1:40 PM EST [facility] SENIOR EXECUTIVE COMPENSATION ANALYST LAB BLOOD ORDERABLES Final Resu lt Performing Organization Address City/[facility]/ZIP Co de Phone Number [facility] [address] [place] [phone] * (ABNORMAL) Lipid Panel, Standard (04/20/2024 12:16 PM EST) Triglycerides 145 <150 mg/dL [facility] Comment:Desirable Triglyceri de: less than 150 mg/dLBorderline High Triglyceride 150-199 mg/dLHigh Triglyceride: 200-499 mg/dLVery High Triglyceride: greater than or equal to 5OO mg/dL Cholesterol 148 <200 mg/dL [facility] Comment:Desirable Cholestero l: less than 200 mg/dLBorderline High Cholesterol: 200-239 mg/dLHigh Cholesterol: greater than 239 mg/dL LDL Cholesterol Calculated 79 <100 mg/dL [facility] Comment:Desirable LDL: less than 100 mg/dLNear Optimal/Above Optimal LDL: 110- 129 mg/dLBorderline High LDL: 130-159 mg/dLHigh LDL: 160-189 mg/dLVery High LDL: greater than or equal to 190 mg/dL HDL Cholesterol 40(L) >40 mg/dL [facility] Comment:Desirable HDL: great er than 40 mg/dL Note: This HDL assay may give artificially low results in patients with liver disease. Blood Venous blood specimen / Unknown 04/20/2024 12:16 PM EST 04/20/2024 1:40 PM EST Reyna Slaughter NP LAB BLOOD ORDERABLES Final Resu lt [facility] [address] [place] [phone] * (ABNORMAL) Comprehensive Metabolic Panel (04/20/2024 12:16 PM EST) Pathologist [facility] Sodium 139 135 - 145 mmol/L [facility] Potassium 3.4 3.3 - 5.1 mmol/L [facility] Chloride 109(H) 96 - 108 mmol/L [facility] Carbon Dioxide 25 22 - 29 mmol/L [facility] Anion Gap 8(L) 12 - 20 [facility] Urea Nitrogen (BUN) 14 9 - 16 mg/dL [facility] Creatinine, Serum 0.75 0.5 - 1.4 mg/dL [facility] Estimated Glomerular Filt Rate >60 [facility] Comment:Chronic Kidney Disea se: Estimated GFR < 60 mL/min/[id number] Kidney Disease: Estimated GFR < 15 mL/min/1.73m2 Glucose 68 60 - 115 mg/dL [facility] Calcium 10.2 8.4 - 10.2 mg/dL [facility] Bilirubin, Total 0.4 0.0 - 1.0 mg/dL [facility] Aspartate Amino Transferase 18 5 - 31 U/L [facility] Alanine Aminotransferase 20 0 - 31 U/L [facility] Total Protein 7.3 6.5 - 8.0 g/dL [facility] Albumin Level 4.3 3.5 - 5.0 g/dL [facility] Alkaline Phosphatase 81 39 - 117 U/L [facility] Blood Venous blood specimen / Unknown 04/20/2024 12:16 PM EST 04/20/2024 1:40 PM EST Reyna Slaughter SENIOR EXECUTIVE COMPENSATION ANALYST LAB BLOOD ORDERABLES Final Resu lt [facility] [address] [place] [phone] * (ABNORMAL) POCT HGB A1C (04/20/2024 11:29 AM EST) Hemoglobin A1C 6.4(A) 4.0 - 6.0 % QC Media Lot # [id number] Lot# Expiration Date [id number] Blood 04/20/2024 11:2 9 AM EST Reyna Suresh SENIOR EXECUTIVE COMPENSATION ANALYST POINT OF CARE TEST ENTER/EDIT O RDERABLES Final Result * POCT Glucose (04/20/2024 11:28 AM EST) Glucose Blood, POC 81 60 - 200 mg/dL QC Media Lot # [id number] Lot# Expiration Date [id number] Blood Capillary blood specimen / Unknown 04/20/2024 11:28 AM EST us Reyna Slaughter SENIOR EXECUTIVE COMPENSATION ANALYST POINT OF CARE TEST ENTER/EDIT O RDERABLES Final Result * BI Mammogram Screening Tomosynthesis Bilateral (08/26/2022 1:45 PM EDT) Anatomical Region Laterality Modality Breast Bilateral Mammography 08/26/2022 1:45 PM EDT Narrative 08/29/2022 11:21 AM EDT ? [facility] ? [address] ?[place] [id number] ? Mammography Report ? Signed ? Patient: Faina Brand ?MR#: [id number] ? : 1970 ?Acct:[id number] ? Age/Sex: 52 / F ?ADM Date: 08/26/22 ? Loc: HO.MAMMO ? Attending Dr: Terrence Paredes SENIOR EXECUTIVE COMPENSATION ANALYST ? Ordering Physician: Terrence Paredes SENIOR EXECUTIVE COMPENSATION ANALYST ?Results: 1Negativ ?? e ? Date of Service: 08/26/22 ?Follow Up: 1 Year From Orig ?? inal Mammogram ? Procedure(s): MM tomosynthesis screening BI ?? Accession Number(s): [id number] ? cc: Terrence Paredes SENIOR EXECUTIVE COMPENSATION ANALYST ? EXAMINATION: ?? MM SCREENING DIGITAL BREAST [...] 1118 ? DD/ 1345 ? TD/TT: ? Store Team Member: ALEXIS ? Procedure Note Doncailin, Image - 09/18/2022 [facility] [address] [place] [address] Mammography Report Signed Patient: Kam Brand#: [id number] : 1970Acct:[id number] Age/Sex: 52 / FADM Date: 08/26/22 Loc: [place] Attending Dr: Terrence Paredes SENIOR EXECUTIVE COMPENSATION ANALYST Ordering Physician: Terrence Paredes NPResults: 1Negativ e Date of Service: 08/26/22Follow Up: 1 Year From Orig inal Mammogram Procedure(s): MM tomosynthesis screening BI Accession Number(s): [id number] cc: Terrence Paredes SENIOR EXECUTIVE COMPENSATION ANALYST EXAMINATION: MM SCREENING DIGITAL BREAST TOMOSYNTHESIS, BILATERAL [...] in OV> 08/29/22 1118 DD/ 1345 TD/TT: Store Team Member: VANESA [facility] External Provider IMG BI PROCEDURES Final Result from Last 3 Months or Most Recently Relevant to Health Maintenance Insurance [facility] STANDARD MEDICARE Care Teams Public Health Social Worker Relationship Specialty Start Date End Date Reyna Slaughter NP [address] [place] [address] PCP - General Family Medicine 03/03/23 [facility] 07/03/15
--- OUTSIDE RECORDS SUMMARY | 2024-04-20 14:32 | XMS_ITS | Encounter Summary ---
Author Organization [employer] Address [address] [facility] 7t [place] [address] Care Team Providers Care Pump Runner Name Role Phone Reyna Slaughter NP Primary Care Provider [phone] Reason for Visit * Reason Onset Date Comments Med Refill 05/13/2023 Encounter Details Date Type Department Care Team ([facility] st Contact Info) Description 05/13/2023 Refill [facility] [address] [place], [place] [phone] Reyna Slaughter NP [address] [place] [address] Type 2 diabetes mellitus with other specified complication, with long-term current use of insulin ([facility]) Social History Tobacco Use Types Packs/Day Years [...] encounter Miscellaneous Notes * Telephone Encounter - Reyna Slaughter NP - 05/14/2023 12:19 PM EST Approving, but needs appt for additional refills. * Telephone Encounter - Jennie Cobian - 05/13/2023 8:32 AM EST TC from pt requesting medication refill. Medications needing refill : NovoLOG FLEXPEN 100 UNIT/ML pen To be sent to: [facility] - [place], [place] - [id number] - [place] - [address] documented in this encounter Plan of Treatment Upcoming Encounters Date Type Department Care Team (Late st Contact Info) Description 07/15/2024 10:15 AM EDT Office Visit [facility] [address] [place] [address] Reyna Slaughter NP [address] [place] [address] documented as of this encounter Visit Diagnoses Diagnosis Type 2 diabetes mellitus with other specified complication, with long-term current use of insulin ([facility]) documented in this encounter Additional Health Concerns Assessment Noted Time PHQ-9 Depression Total Score: 0 04/22/19 24 2:34 PM EST documented as of this encounter Care Teams Pump Runner Relationship Specialty Start Date End Date Reyna Slaughter NP [address] [place] [address] PCP - General Family Medicine 03/03/23 [facility] 07/03/15 documented as of this encounter
--- OUTSIDE RECORDS SUMMARY | 2024-04-20 14:32 | XMS_ITS | Encounter Summary ---
Author Organization [employer] Address [address] [facility] 7t [place] [address] Care Team Providers Care Machine Bobbin Winder Name Role Phone Reyna Slaughter NP Primary Care Provider [phone] Reason for Visit * Reason Comments Med Refill Encounter Details Date Type Department Care Team ([facility] st Contact Info) Description 03/22/2024 Refill [facility] [address] [place] [address] Reyna Slaughter NP [address] [place] [address] Chronic idiopathic constipation; Primary hyperparathyroidism (CMS/HCC) Social History Tobacco Use Types Packs/Day Years [...] Description 07/15/2024 10:15 AM EDT Office Visit [facility] [address] [place] [address] Reyna Slaughter NP [address] [place] [address] documented as of this encounter Visit Diagnoses Diagnosis Chronic idiopathic constipation Unspecified constipation Primary hyperparathyroidism (CMS/HCC) Primary hyperparathyroidism documented in this encounter Additional Health Concerns Assessment Noted Time PHQ-9 Depression Total Score: 0 04/22/19 24 2:34 PM EST documented as of this encounter Care Teams Machine Bobbin Winder Relationship Specialty Start Date End Date Reyna Slaughter NP [address] [place] [address] PCP - General Family Medicine 03/03/23 [facility] 07/03/15 documented as of this encounter
--- OUTSIDE RECORDS SUMMARY | 2024-04-20 14:32 | XMS_ITS | Encounter Summary ---
Author Organization [employer] Address [address] [place] [address] 7t [place] [address] Care Team Providers Care Crown Blocker Name Role Phone Reggie Terrence BAR Primary Care Provider Unavail Natalia Leblanc MD Primary Care Pro vider Reyna Slaughter NP Primary Care Provider [phone] Reason for Visit * Reason Comments Med Refill Encounter Details Date Type Department Care Team (Late st Contact Info) Description 04/08/2022 Refill [facility] [address] [place] [address] Chantale Roque MD [address] [place] [address] Type 2 diabetes mellitus with other specified complication, with long-term current use of insulin ([facility]) Social History Tobacco Use Types Packs/Day Years [...] Description 07/15/2024 10:15 AM EDT Office Visit [facility] [address] [place] [address] Reyna Slaughter NP [address] [place] [address] documented as of this encounter Visit Diagnoses Diagnosis Type 2 diabetes mellitus with other specified complication, with long-term current use of insulin ([facility]) documented in this encounter Care Teams Crown Blocker Relationship Specialty Start Date End Date Terrence Paredes AGNP PCP - General Family Medicine 02/06/22 12/10/22 Natalia Johnson MD [address] [place], [place] [phone] PCP - General Internal Medicine 12/11/22 03/02/23 Reyna Slaughter NP [address] [place], [place] [phone] PCP - General Family Medicine 03/03/23 [facility] 07/03/15 documented as of this encounter
--- OUTSIDE RECORDS SUMMARY | 2024-04-20 14:32 | XMS_ITS | Encounter Summary ---
Author Organization [employer] Address [address] [place] [address] 7t [place] [address] Care Team Providers Care Stiff Leg Derrick Operator Name Role Phone Terrence Paredes Primary Care Provider Unavail able Natalia Johnson MD Primary Care Pro vider Reyna Slaughter NP Primary Care Provider [phone] Reason for Visit * Reason Comments Med Refill Encounter Details Date Type Department Care Team (Late st Contact Info) Description 04/18/2022 Refill [facility] [address] [place] [address] Nixon Flaherty MD [address] [place] [address] Chronic idiopathic constipation (Primary Dx) Social History Tobacco Use Types Packs/Day Years [...] Description 07/15/2024 10:15 AM EDT Office Visit [facility] [address] [place] [address] Reyna Slaughter NP [address] [place] [address] documented as of this encounter Visit Diagnoses Diagnosis Chronic idiopathic constipation- Primary Unspecified constipation documented in this encounter Care Teams Stiff Leg Derrick Operator Relationship Specialty Start Date End Date Terrence Paredes AGNP PCP - General Family Medicine 02/06/22 12/10/22 Natalia Johnson MD [address] [place], [place] [phone] PCP - General Internal Medicine 12/11/22 03/02/23 Reyna Slaughter NP [address] [place], [place] [phone] PCP - General Family Medicine 03/03/23 [facility] 07/03/15 documented as of this encounter
--- OUTSIDE RECORDS SUMMARY | 2024-04-20 14:32 | XMS_ITS | Encounter Summary ---
Author Organization [employer] Address [address] [facility] 7t [place] [address] Care Team Providers Care Library Director Name Role Phone Reyna Slaughter NP Primary Care Provider [phone] Reason for Referral * Medications - Closed Specialty Diagnoses / Procedures Referred By Zoey hines Referred To Contact Diagnoses Type 2 diabetes mellitus with other specified complication, with long-term current use of insulin ([facility]) Reyna Slaughter NP [address] [place] [address] Phone: tel: fax: Referral ID Status Reason Start Date Expiration Date Visits Re quested Visits Authorized [id number] Closed 1 1 Reason for Visit * Reason Onset Date Comments Medication Question 05/19/2023 Encounter Details Date Type Department Care Team ([facility] Contact Info) Description 05/19/2023 Telephone [facility] [address] [place] [address] Reyna Slaughter NP [address] [place], [place] [phone] Medication Question Social History Tobacco Use Types Packs/Day Years [...] Telephone Encounter - Reyna Slaughter NP - 05/21/2023 11:32 AM EST Thank you * Telephone Encounter - Bairon Shah RN - 05/21/2023 10:12 AM EST T/C to pt. And Home care staff for below message, home care staff is going to fax reading to [facility]. * Telephone Encounter - Reyna Slaughter NP - 05/20/2023 4:59 PM EST I have changed to trulicity dose to 0.75 mg/0.5ml. Please inform the patient and home care staff. While speaking with home care staff, please obtain record of the patient's home glucose readings as we may need to adjust her diabetic medications based on her POCT reading at last visit. * Telephone Encounter - Bairon Shah RN - 05/19/2023 1:17 PM EST T/C to pharmacy for below message, pharmacy states they do have Trulicity 0.5 MG / 0.5 ML and Trulicity 3.0 MG / 0.5 ml in stock. Please review and advice. * Telephone Encounter - Jameson Patten - 05/19/2023 9:30 AM EST [facility] calling to request a different dosage or a alternative medication for dulaglutide (Trulicity) 1.5 MG/0.5ML solution pen- injector due to the medication being in back order documented in this encounter Plan of Treatment Upcoming Encounters Date Type Department Care Team (Late st Contact Info) Description 07/15/2024 10:15 AM EDT Office Visit [facility] [address] [place] [address] Reyna Slaughter NP [address] [place] [address] documented as of this encounter Visit Diagnoses Diagnosis Type 2 diabetes mellitus with other specified complication, with long-term current use of insulin ([facility])- Primary documented in this encounter Additional Health Concerns Assessment Noted Time PHQ-9 Depression Total Score: 0 04/22/19 24 2:34 PM EST documented as of this encounter Care Teams Library Director Relationship Specialty Start Date End Date Reyna Slaughter NP [address] [place] [address] PCP - General Family Medicine 03/03/23 [facility] 07/03/15 documented as of this encounter
--- OUTSIDE RECORDS SUMMARY | 2024-04-20 14:32 | XMS_ITS | Encounter Summary ---
Author Organization [employer] Address [address] [facility] 7t [place] [address] Care Team Providers Care Early Morning Name Role Phone Reyna Slaughter NP Primary Care Provider [phone] Reason for Visit * Reason Onset Date Comments Med Refill 09/14/2023 Encounter Details Date Type Department Care Team ([facility] st Contact Info) Description 09/14/2023 Telephone [facility] [address] [place], [place] [phone] Reyna Slaughter NP [address] [place] [address] Med Refill Social History Tobacco Use Types Packs/Day Years [...] encounter Miscellaneous Notes * Telephone Encounter - Bairon Shah RN - 09/14/2023 10:56 AM EDT T/C to pt. For below message, pt. Schedule for Ed follow up apt. On 09/21/2023. ED summery scanned into pt.'s chart. * Telephone Encounter - Martin Jc - 09/14/2023 8:30 AM EDT Tc from pt requesting to r/s EDF appt scheduled for 09/22/23. Appt has been cancelled. Please contact at [phone] documented in this encounter Plan of Treatment Upcoming Encounters Date Type Department Care Team (Late st Contact Info) Description 07/15/2024 10:15 AM EDT Office Visit [facility] [address] [place] [address] Reyna Slaughter NP [address] [place] [address] documented as of this encounter Visit Diagnoses Not on filedocumented in this encounter Additional Health Concerns Assessment Noted Time PHQ-9 Depression Total Score: 0 04/22/19 24 2:34 PM EST documented as of this encounter Care Teams Early Morning Relationship Specialty Start Date End Date Reyna Slaughter NP [address] [place] [address] PCP - General Family Medicine 03/03/23 [facility] 07/03/15 documented as of this encounter
--- OUTSIDE RECORDS SUMMARY | 2024-04-20 14:32 | XMS_ITS | Encounter Summary ---
Author Organization [employer] Address [address] [facility] 7t [place] [address] Care Team Providers Care Nurse Coordinator Name Role Phone Terrence Paredes Primary Care Provider Unavail able Natalia Johnson MD Primary Care Pro vider Reyna Slaughter NP Primary Care Provider [phone] Reason for Visit * Reason Onset Date Comments call back requested 04/11/2022 Appointment Request 04/11/2022 Patient sche duled with assigned provider for 04/16/2022. RN aware of scheduled appt. Encounter Details Date Type Department Care Team (Late st Contact Info) Description 04/11/2022 Telephone [facility] [address] [place], [place] [phone] Terrence Paredes AGNP call back requested ; Appointment Request (Patient scheduled with assigned provider for 04/16/2022. RN aware of scheduled appt. ) Social History Tobacco Use Types Packs/Day Years Used Date Smoking Tobacco: Never Assessed Depression Answer Date Recorded Patient Health Questionnaire-9 [...] PM EDT documented as of this encounter Miscellaneous Notes * Telephone Encounter - Ariadne Martin RN - 04/11/2022 9:24 AM EST TC returned to CAROLEE Vu [phone] who reports the pt has not had her trulicity in 3 weeks due tothe Triulicity shortage and her BS's are increasing. [facility]NA is inquiring if the pt should increase herTresiba in the mean time. [facility]NA informed per below messages, PCP would like to see pt for a TP appt as the PCP has never met the pt and would like to check her A1c and adjust meds accordingly. RN informed [facility] RN would discuss w/ employee who schedules TP appt's to request pt gets scheduled DOROTHY as ptis without DM medications. VNA verbalized understanding. Of note, VNA reports she can be called at any time during the pt's appt if PCP has questions regarding her meds as they are in a lock box. * Telephone Encounter - Martin Jc - 04/11/2022 8:08 AM EST Tc from [facility] requesting a call back from a nurse, Please see notes below. Please contact at [phone] documented in this encounter Plan of Treatment Upcoming Encounters Date Type Department Care Team (Late st Contact Info) Description 07/15/2024 10:15 AM EDT Office Visit [facility] [address] [place] [address] Reyna Slaughter NP [address] [place] [address] documented as of this encounter Visit Diagnoses Not on filedocumented in this encounter Care Teams Nurse Coordinator Relationship Specialty Start Date End Date Terrence Paredes AGNP PCP - General Family Medicine 02/06/22 12/10/22 Natalia Johnson MD [address] [place] [address] PCP - General Internal Medicine 12/11/22 03/02/23 Reyna Slaughter NP [address] [place] [address] PCP - General Family Medicine 03/03/23 [facility] 07/03/15 documented as of this encounter
--- OUTSIDE RECORDS SUMMARY | 2024-04-20 14:33 | XMS_ITS | Encounter Summary ---
Author Organization [employer] Address [address] [place] [address] 7t [place] [address] Care Team Providers Care Cloth Hand Name Role Phone Terrence Paredes Primary Care Provider Unavail Natalia Leblanc MD Primary Care Pro vider Reyna Slaughter NP Primary Care Provider [phone] Reason for Visit * Reason Comments Med Refill Encounter Details Date Type Department Care Team (Late st Contact Info) Description 05/22/2022 Refill [facility] [address] [place] [address] Nixon Flaherty MD [address] [place] [address] Anxiety Social History Tobacco Use Types Packs/Day Years [...] Description 07/15/2024 10:15 AM EDT Office Visit [facility] [address] [place] [address] Reyna Slaughter NP [address] [place] [address] documented as of this encounter Visit Diagnoses Diagnosis Anxiety Anxiety state, unspecified documented in this encounter Care Teams Cloth Hand Relationship Specialty Start Date End Date Terrence Paredes AGNP PCP - General Family Medicine 02/06/22 12/10/22 Natalia Johnson MD [address] [place] [phone] PCP - General Internal Medicine 12/11/22 03/02/23 Reyna Slaughter NP [address] [place] [address] PCP - General Family Medicine 03/03/23 [facility] 07/03/15 documented as of this encounter
--- OUTSIDE RECORDS SUMMARY | 2024-04-20 14:33 | XMS_ITS | Encounter Summary ---
Author Organization [employer] Address [address] [facility] 7t [place] [address] Care Team Providers Care Ship Mate Name Role Phone Reyna Slaughter ELAINE Primary Care Provider [phone] Reason for Visit * Reason Comments Med Refill Encounter Details Date Type Department Care Team ([facility] st Contact Info) Description 03/14/2023 Refill [facility] [address] [place], [place] [phone] Natalia Johnson MD [address] [place] [address] Type 2 diabetes mellitus with other specified complication, with long-term current use of insulin ([facility]) Social History Tobacco Use Types Packs/Day Years Used Date Smoking Tobacco: Never Smokeless Tobacco: Never Depression Answer Date Recorded Patient Health Questionnaire-9 Score 2 06/11/2022 Housing Stability Answer Date Recorded What is your housing situation today? I have arias fields 01/20/[address] you li ve. Do you have problems with any of the following? None of the above 01/20/2023 Food Insecurity Answer Date Recorded Within the past 12 months, y ou worried that your food would run out before you got money to buy more: Never True 01/20/2023 Within the past 12 months,th e food you bought just didn't last and you didn't have enough money to get more: Never True Transportation Answer Date Recorded In the past [...] Telephone Encounter - Reyna Slaughter NP - 03/18/2023 2:02 PM EST Approving, but needs appt for additional refills. documented in this encounter Plan of Treatment Upcoming Encounters Date Type Department Care Team (Late st Contact Info) Description 07/15/2024 10:15 AM EDT Office Visit [facility] [address] [place] [address] Reyna Slaughter NP [address] [place] [address] documented as of this encounter Visit Diagnoses Diagnosis Type 2 diabetes mellitus with other specified complication, with long-term current use of insulin ([facility]) documented in this encounter Additional Health Concerns Assessment Noted Time PHQ-9 Depression Total Score: 2 06/12/19 23 2:44 PM EDT documented as of this encounter Care Teams Ship Mate Relationship Specialty Start Date End Date Reyna Slaughter NP [address] [place] [address] PCP - General Family Medicine 03/03/23 [facility] 07/03/15 documented as of this encounter
--- OUTSIDE RECORDS SUMMARY | 2024-04-20 14:33 | XMS_ITS | Encounter Summary ---
Author Organization [employer] Address [address] [facility] 7t [place] [address] Care Team Providers Care Steel Plate Caulker Name Role Phone Natalia Johnson MD Primary Care Pro vider Reyna Slaughter NP Primary Care Provider [phone] Reason for Visit * Reason Comments Med Refill Encounter Details Date Type Department Care Team (Late st Contact Info) Description 02/03/2023 Refill [facility] [address] [place] [address] Terrence Paredes AGNP Chest pain, unspecified type Social History Tobacco [...] Description 07/15/2024 10:15 AM EDT Office Visit [facility] MED[facility] [address] [place] [address] Reyna Slaughter NP [address] [place] [address] documented as of this encounter Visit Diagnoses Diagnosis Chest pain, unspecified type documented in this encounter Additional Health Concerns Assessment Noted Time PHQ-9 Depression Total Score: 2 06/12/19 23 2:44 PM EDT documented as of this encounter Care Teams Steel Plate Caulker Relationship Specialty Start Date End Date Natalia Johnson MD [address] [place] [address] PCP - General Internal Medicine 12/11/22 03/02/23 Reyna Slaughter NP [address] [place] [address] PCP - General Family Medicine 03/03/23 [facility] 07/03/15 documented as of this encounter
--- OUTSIDE RECORDS SUMMARY | 2024-04-20 14:33 | XMS_ITS | Encounter Summary ---
Author Organization [employer] Address [address] [facility] 7t [place] [address] Care Team Providers Care Barrel Washer Machine Name Role Phone Reggie Terrence BAR Primary Care Provider Unavail able Natalia Johnson MD Primary Care Pro vider Reyna Slaughter NP Primary Care Provider [phone] Encounter Details Date Type Department Care Team (Late Contact Info) Description 06/09/2022 Orders Only [facility] [address] [place], [place] [phone] Ese Gallardo LPN Social History Tobacco Use [...] suspected to have Coronavirus/COVID-19? No / Unsure 06/11/2022 2:27 PM EDT documented as of this encounter Plan of Treatment Upcoming Encounters Date Type Department Care Team (Late Contact Info) Description 07/15/2024 10:15 AM EDT Office Visit [facility] MED[facility] [address] [place], [place] [phone] Reyna Slaughter NP [address] [place], [place] [phone] documented as of this encounter Visit Diagnoses Not on filedocumented in this encounter Care Teams Barrel Washer Machine Relationship Specialty Start Date End Date Terrence Paredes AGNP PCP - General Family Medicine 02/06/22 12/10/22 Natalia Johnson MD [address] [place], [place] [phone] PCP - General Internal Medicine 12/11/22 03/02/23 Reyna Slaughter NP [address] [place], [place] [phone] PCP - General Family Medicine 03/03/23 [facility] 07/03/15 documented as of this encounter
--- OUTSIDE RECORDS SUMMARY | 2024-04-20 14:33 | XMS_ITS | Encounter Summary ---
Author Organization [employer] Address 75 [facility] 7t [place] [address] Care Team Providers Care Segment Block Layer Name Role Phone Reggie Terrence BAR Primary Care Provider Unavail able Natalia Johnson MD Primary Care Pro vider Reyna Slaughter NP Primary Care Provider [phone] Encounter Details Date Type Department Care Team (Late st Contact Info) Description 11/13/[address] [facility]S [address] [place], [place] [phone] Ese Gallardo LPN Social History Tobacco Use [...] Description 07/15/2024 10:15 AM EDT Office Visit [facility] [address] [place], [place] [phone] Reyna Slaughter NP [address] [place], [place] [phone] documented as of this encounter Visit Diagnoses Not on filedocumented in this encounter Additional Health Concerns Assessment Noted Time PHQ-9 Depression Total Score: 2 06/12/19 2:44 PM EDT documented as of this encounter Care Teams Segment Block Layer Relationship Specialty Start Date End Date Terrence Paredes AGNP PCP - General Family Medicine 02/06/22 12/10/22 Natalia Johnson MD [address] [place] [address] PCP - General Internal Medicine 12/11/22 03/02/23 Reyna Slaughter NP [address] [place] [address] PCP - General Family Medicine 03/03/23 [facility] 07/03/15 documented as of this encounter
--- OUTSIDE RECORDS SUMMARY | 2024-04-20 14:33 | XMS_ITS | Encounter Summary ---
Author Organization [employer] Address 75 [facility] 7t [place] [address] Care Team Providers Care Sales Assistant Institutional Sales Name Role Phone Reyna Slaughter NP Primary Care Provider [phone] Reason for Visit * Reason Onset Date Comments Med Change Request 05/13/2023 Encounter Details Date Type Department Care Team ([facility] st Contact Info) Description 05/13/2023 Telephone [facility] MED[facility]INE [address] [place], [place] [phone] Reyna Slaughter NP 230 [place] [address] Med Change Request Social History Tobacco Use Types Packs/Day Years [...] Telephone Encounter - Bairon Shah RN - 05/13/2023 3:53 PM EST Please review and advise for below message, Pharmacy has stock for 0.75 mg or 3 mg. * Telephone Encounter - Jennie Cobian - 05/13/2023 8:31 AM EST Tc from pharmacy states dulaglutide (Trulicity) 1.5 MG/0.5ML solution pen- injector is currently on back order and is requesting for provider to either prescribe .75 mg or 3 mg. documented in this encounter Plan of Treatment Upcoming Encounters Date Type Department Care Team (Late st Contact Info) Description 07/15/2024 10:15 AM EDT Office Visit [facility] [address] [place] [address] Reyna Slaughter NP [address] [place] [address] documented as of this encounter Visit Diagnoses Not on filedocumented in this encounter Additional Health Concerns Assessment Noted Time PHQ-9 Depression Total Score: 0 04/22/19 24 2:34 PM EST documented as of this encounter Care Teams Sales Assistant Institutional Sales Relationship Specialty Start Date End Date Reyna Slaughter NP [address] [place] [address] PCP - General Family Medicine 03/03/23 [facility] 07/03/15 documented as of this encounter
--- OUTSIDE RECORDS SUMMARY | 2024-04-20 14:33 | XMS_ITS | Encounter Summary ---
Author Organization [employer] Address 75 [facility] 7t [place] [address] Care Team Providers Care Supervisor Grips Name Role Phone Reyna Slaughter ELAINE Primary Care Provider [phone] Reason for Visit * Reason Comments Med Refill Encounter Details Date Type Department Care Team ([facility] st Contact Info) Description 04/17/2023 Refill [facility]S [address] [place], [place] [phone] Name, MD Nixon [address] [place] [address] Anxiety Social History Tobacco Use Types Packs/Day [...] Telephone Encounter - Reyna Slaughter NP - 04/17/2023 5:04 PM EST Approving, but needs appt for additional refills. documented in this encounter Plan of Treatment Upcoming Encounters Date Type Department Care Team ([facility] st Contact Info) Description 07/15/2024 10:15 AM EDT Office Visit [facility] [address] [place] [address] Reyna Slaughter NP [address] [place] [address] documented as of this encounter Visit Diagnoses Diagnosis Anxiety Anxiety state, unspecified documented in this encounter Additional Health Concerns Assessment Noted Time PHQ-9 Depression Total Score: 2 06/12/19 23 2:44 PM EDT documented as of this encounter Care Teams Supervisor Grips Relationship Specialty Start Date End Date Reyna Slaughter NP 230 [place] [address] PCP - General Family Medicine 03/03/23 [facility] 07/03/15 documented as of this encounter
--- OUTSIDE RECORDS SUMMARY | 2024-04-20 14:33 | XMS_ITS | Encounter Summary ---
Author Organization [employer] Address 75 [facility] 7t [place] [address] Care Team Providers Care Warehouse Worker 2Nd Shift Name Role Phone Reyna Slaughter NP Primary Care Provider [phone] Reason for Visit * Reason Onset Date Comments Medication Question 03/30/2024 Encounter Details Date Type Department Care Team ([facility] st Contact Info) Description 03/30/2024 Telephone [facility] MEDICINE [address] [place], [place] [phone] Reyna Slaughter NP [address] [place] [address] Medication Question Social History Tobacco Use Types [...] encounter Miscellaneous Notes * Telephone Encounter - Kaia Velarde RN - 03/31/2024 9:09 AM EST Tc to pt to schedule follow up with PCP per Reyna Slaughter NP New rx has been placed. Patient needs to be seen. Pt verbalized understanding and scheduled for follow up on 04/20/24 with PCP. Tc to [facility] [employer] [facility] to let them know that provider updated the rx for the insulin degludec (Tresiba FlexTouch) 200 UNIT/ML injection to 86 units as requested. [facility] request if we can fax the order and they provided their fax number. Order faxed, confirmation received and form placed in [employer].I[employer] scanning bin. * Telephone Encounter - Reyna Slaughter NP - 03/30/2024 4:59 PM EST new rx has been placed. Patient needs to be seen * Telephone Encounter - Kaia Velarde RN - 03/30/2024 4:15 PM EST Tc to [facility] [employer] [facility] requesting a call back. [facility] reports they keep receiving a script staing for pt to receive 85 units once daily of Tresiba FlexTouch 200 Unit/ML which they cannot give because thepen is in even number increments. Script was last sent out on 12/21/23 with 3 refills. [facility] reports they have been giving pt 86 units and requesting the provider to send in a new order with the correct dosage. Informed [facility] we'll forward message to PCP for dosage clarification. Medication pended to PCP for review for dosage clarification. * Telephone Encounter - Amilcar Cleve - 03/30/2024 1:43 PM EST TC from [facility] [employer] , requesting a call back from a nurse regarding insulin medication and dosage . Unable to do dosage directed by provider due to insulin pen [facility] [phone] documented in this encounter Plan of Treatment Upcoming Encounters Date Type Department Care Team (Late st Contact Info) Description 07/15/2024 10:15 AM EDT Office Visit [facility] MEDICINE [address] [place] [address] Reyna Slaughter NP [address] [place] [address] documented as of this encounter Visit Diagnoses Diagnosis Type 2 diabetes mellitus with diabetic polyneuropathy, with long-term current use of insulin ([facility]) documented in this encounter Additional Health Concerns Assessment Noted Time PHQ-9 Depression Total Score: 0 04/22/19 24 2:34 PM EST documented as of this encounter Care Teams Warehouse Worker 2Nd Shift Relationship Specialty Start Date End Date Reyna Slaughter NP [address] [place] [address] PCP - General Family Medicine 03/03/23 [facility] 07/03/15 documented as of this encounter
--- OUTSIDE RECORDS SUMMARY | 2024-04-20 14:33 | XMS_ITS | Encounter Summary ---
Author Organization [employer] Address [address] [place] [address] 7t [place] [address] Care Team Providers Care Theatrical Performer Name Role Phone Terrence Paredes Primary Care Provider Unavail able Natalia Johnson MD Primary Care Pro vider Reyna Slaughter NP Primary Care Provider [phone] Encounter Details Date Type Department Care Team (Late st Contact Info) Description 04/29/2022 Orders Only [facility] MED & PEDS [address] [place] [address] Ese Gallardo LPN Social History Tobacco Use [...] Description 07/15/2024 10:15 AM EDT Office Visit [facility] MEDICINE [address] [place] [address] Reyna Slaughter NP [address] [place], [place] [phone] documented as of this encounter Visit Diagnoses Not on filedocumented in this encounter Care Teams Theatrical Performer Relationship Specialty Start Date End Date Terrence Paredes AGNP PCP - General Family Medicine 02/06/22 12/10/22 Natalia Johnson MD [address] [place] [address] PCP - General Internal Medicine 12/11/22 03/02/23 Reyna Slaughter NP [address] [place] [address] PCP - General Family Medicine 03/03/23 [facility] 07/03/15 documented as of this encounter
--- OUTSIDE RECORDS SUMMARY | 2024-04-20 14:33 | XMS_ITS | Encounter Summary ---
Author Organization [employer] Address 75 [facility] 7t [place] [address] Care Team Providers Care Blending Machine Feeder Name Role Phone Terrence Paredes Primary Care Provider Unavail able Natalia Johnson MD Primary Care Pro vider Reyna Slaughter NP Primary Care Provider [phone] Reason for Visit * Reason Onset Date Comments Triage 07/16/2022 Encounter Details Date Type Department Care Team (Late st Contact Info) Description 07/16/2022 Telephone [facility] MEDICINE [address] [place] [address] Terrence Paredes AGNP Triage Social History Tobacco Use Types Packs/Day Years [...] the past 12 months, has t he [employer], [email or web address], oil or water [employer] threatened to shut off services in your [...] encounter Miscellaneous Notes * Telephone Encounter - Nesha Fernandes RN - 07/16/2022 9:19 AM EDT Triage call Pt reports cough for 2 weeks, dry, and causes vomiting. Pt reports chronic nausea whichalso causes vomiting . Pt reports nasal congestion and drainage is greenish in color, itchy , watery eyes and itchy throat at times. Pt denies allergies and no difficulty breathing. Pt attributes thenausea to medications taken, trulicity, tresiba, and novolog. Pt agrees with disposition and is scheduled to see PCP 07/25 @ 245pm. Home care reviewed. Insurance verified @ time of scheduling. Protocol Used: Nausea (Adult) Protocol-Based Disposition: See in Office or Video Visit within 2 Weeks Video visit not offered Positive Triage Question: * Nausea is a chronic symptom (recurrent or ongoing AND present > 4 weeks) * All higher-acuity triage questions were negative Care Advice Discussed: * Reassurance and Education * Clear Fluids * Solids * Avoid Meds * Reasons To Call Back - Nausea lasts over 1 week - You become worse * Telephone Encounter - Martin Jc - 07/16/2022 8:42 AM EDT Symptom: Cough Outcome: Schedule an appointment to be seen within 24 hours Reason: Caller denied all higher acuity questions The caller accepted this outcome Please contact at [phone] documented in this encounter Plan of Treatment Upcoming Encounters Date Type Department Care Team (Late st Contact Info) Description 07/15/2024 10:15 AM EDT Office Visit [facility] MEDICINE [address] [place] [address] Reyna Slaughter NP [address] [place] [address] documented as of this encounter Visit Diagnoses Not on filedocumented in this encounter Additional Health Concerns Assessment Noted Time PHQ-9 Depression Total Score: 2 06/12/19 2:44 PM EDT documented as of this encounter Care Teams Blending Machine Feeder Relationship Specialty Start Date End Date Terrence Paredes AGNP PCP - General Family Medicine 02/06/22 12/10/22 Natalia Johnson MD [address] [place] [address] PCP - General Internal Medicine 12/11/22 03/02/23 Reyna Slaughter NP [address] [place] [address] PCP - General Family Medicine 03/03/23 [facility] 07/03/15 documented as of this encounter
--- OUTSIDE RECORDS SUMMARY | 2024-04-20 14:33 | XMS_ITS | Encounter Summary ---
Author Organization [employer] Address [address] [place] [address] 7t [place] [address] Care Team Providers Care Telephone Station Repairer Name Role Phone Reggie Terrence BAR Primary Care Provider Unavail able Natalia Johnson MD Primary Care Pro vider Reyna Slaughter NP Primary Care Provider [phone] Reason for Visit * Reason Comments Med Refill Encounter Details Date Type Department Care Team ([facility] Contact Info) Description 07/10/2022 Refill [facility] MEDICINE [address] [place] [address] Chantale Roque MD [address] [place] [address] Type 2 diabetes mellitus with other specified complication, with long-term current use of insulin ([facility]) Social History Tobacco Use Types Packs/Day Years [...] 07/15/2024 10:15 AM EDT Office Visit [facility] MEDICINE [address] [place] [address] Reyna Slaughter NP [address] [place] [address] documented as of this encounter Visit Diagnoses Diagnosis Type 2 diabetes mellitus with other specified complication, with long-term current use of insulin ([facility]) documented in this encounter Additional Health Concerns Assessment Noted Time PHQ-9 Depression Total Score: 2 06/12/19 23 2:44 PM EDT documented as of this encounter Care Teams Telephone Station Repairer Relationship Specialty Start Date End Date Terrence Paredes AGNP PCP - General Family Medicine 02/06/22 12/10/22 Natalia Johnson MD [address] [place] [address] PCP - General Internal Medicine 12/11/22 03/02/23 Reyna Slaughter NP [address] [place] [address] PCP - General Family Medicine 03/03/23 [facility] 07/03/15 documented as of this encounter
--- OUTSIDE RECORDS SUMMARY | 2024-04-20 14:33 | XMS_ITS | Encounter Summary ---
Author Organization [employer] Address [address] [place] [address] 7t [place] [address] Care Team Providers Care Ticket Chopper Assembler Name Role Phone Reggie Terrence BAR Primary Care Provider Unavail Natalia Leblanc MD Primary Care Pro vider Reyna Slaughter NP Primary Care Provider [phone] Reason for Visit * Reason Comments Med Refill Encounter Details Date Type Department Care Team (Late st Contact Info) Description 10/01/2022 Refill [facility] [address] [place] [address] Doris Brandon MD [address] [place] [address] Social History Tobacco Use Types Packs/Day Years [...] Description 07/15/2024 10:15 AM EDT Office Visit [facility] MEDICINE [address] [place] [address] Reyna Slaughter NP [address] [place] [address] documented as of this encounter Visit Diagnoses Not on filedocumented in this encounter Additional Health Concerns Assessment Noted Time PHQ-9 Depression Total Score: 2 06/12/19 2:44 PM EDT documented as of this encounter Care Teams Ticket Chopper Assembler Relationship Specialty Start Date End Date Terrence Paredes AGNP PCP - General Family Medicine 02/06/22 12/10/22 Natalia Johnson MD [address] [place] [address] PCP - General Internal Medicine 12/11/22 03/02/23 Reyna Slaughter NP [address] [place] [address] PCP - General Family Medicine 03/03/23 [facility] 07/03/15 documented as of this encounter
--- OUTSIDE RECORDS SUMMARY | 2024-04-20 14:33 | XMS_ITS | Encounter Summary ---
Author Organization [employer] Address 75 [facility] 7t [place] [address] Care Team Providers Care Sterile Process Tech Name Role Phone Reyna Slaughter NP Primary Care Provider [phone] Reason for Visit * Reason Comments Med Refill Encounter Details Date Type Department Care Team ([facility] st Contact Info) Description 03/30/2024 Refill [facility] MED & PEDS [address] [place], [place] [phone] Reyna Slaughter NP [address] [place] [address] Anxiety Social History Tobacco Use Types Packs/Day [...] Description 07/15/2024 10:15 AM EDT Office Visit [facility] MEDICINE [address] [place] [address] Reyna Slaughter NP [address] [place] [address] documented as of this encounter Visit Diagnoses Diagnosis Anxiety Anxiety state, unspecified documented in this encounter Additional Health Concerns Assessment Noted Time PHQ-9 Depression Total Score: 0 04/22/19 24 2:34 PM EST documented as of this encounter Care Teams Sterile Process Tech Relationship Specialty Start Date End Date Reyna Slaughter NP [address] [place] [address] PCP - General Family Medicine 03/03/23 [facility] 07/03/15 documented as of this encounter
--- OUTSIDE RECORDS SUMMARY | 2024-04-20 14:33 | XMS_ITS | Encounter Summary ---
Author Organization [employer] Address 75 [facility] 7t [place] [address] Care Team Providers Care Surgical Supervisor Name Role Phone Reyna Slaughter ELAINE Primary Care Provider [phone] Reason for Visit * Reason Onset Date Comments chartprep 04/15/2024 Encounter Details Date Type Department Care Team ([facility] st Contact Info) Description 04/15/2024 Telephone [facility] MEDICINE [address] [place] [address] Lata Cornelius MA chartprep Social History Tobacco Use Types Packs/Day Years [...] encounter Miscellaneous Notes * Telephone Encounter - Lata Cornelius MA - 04/15/2024 4:03 PM EST Chart Prep Labs: not done Images: done Vaccines due: Covid Due, Hep B Due, Flu Due, and Shingles in pharmacy Due Referrals: Cardiology complete appt was on 12/09/23 Screenings: Colonoscopy , PAP, Mammogram, and Eye Exam Overdue care gaps: A1C, Glucose, Sbirt, SDOH, and Oral Health,HOLLAND-7 documented in this encounter Plan of Treatment Upcoming Encounters Date Type Department Care Team (Late st Contact Info) Description 07/15/2024 10:15 AM EDT Office Visit [facility] MEDICINE [address] [place] [address] Reyna Slaughter NP [address] [place] [address] documented as of this encounter Visit Diagnoses Not on filedocumented in this encounter Additional Health Concerns Assessment Noted Time PHQ-9 Depression Total Score: 0 04/22/19 24 2:34 PM EST documented as of this encounter Care Teams Surgical Supervisor Relationship Specialty Start Date End Date Reyna Slaughter NP [address] [place] [address] PCP - General Family Medicine 03/03/23 [facility] 07/03/15 documented as of this encounter
--- OUTSIDE RECORDS SUMMARY | 2024-04-20 14:33 | XMS_ITS | Encounter Summary ---
Author Organization [employer] Address [address] [facility] 7t [place] [address] Care Team Providers Care Dredge Worker Name Role Phone Reggie Terrence BAR Primary Care Provider Unavail able Natalia Johnson MD Primary Care Pro vider Reyna Slaughter NP Primary Care Provider [phone] Encounter Details Date Type Department Care Team (Late st Contact Info) Description 10/01/2022 Orders Only [facility] MED & PEDS [address] [place], [place] [phone] Ese Gallardo LPN Social History Tobacco Use [...] Description 07/15/2024 10:15 AM EDT Office Visit [facility] MEDICINE [address] [place], [place] [phone] Reyna Slaughter NP [address] [place], [place] [phone] documented as of this encounter Visit Diagnoses Not on filedocumented in this encounter Additional Health Concerns Assessment Noted Time PHQ-9 Depression Total Score: 2 06/12/19 2:44 PM EDT documented as of this encounter Care Teams Dredge Worker Relationship Specialty Start Date End Date Terrence Paredes AGNP PCP - General Family Medicine 02/06/22 12/10/22 Natalia Johnson MD [address] [place] [address] PCP - General Internal Medicine 12/11/22 03/02/23 Reyna Slaughter NP [address] [place] [address] PCP - General Family Medicine 03/03/23 [facility] 07/03/15 documented as of this encounter
--- OUTSIDE RECORDS SUMMARY | 2024-04-20 14:33 | XMS_ITS | Encounter Summary ---
Author Organization [employer] Address 75 [facility] 7t [place] [address] Care Team Providers Care Lumber Loader Name Role Phone Reyna Slaughter NP Primary Care Provider [phone] Reason for Visit * Reason Onset Date Comments Nurse Triage 04/12/2024 Encounter Details Date Type Department Care Team ([facility] st Contact Info) Description 04/12/2024 Telephone [facility] MEDICINE [address] [place], [place] [phone] Reyna Slaughter NP [address] [place] [address] Nurse Triage Social History Tobacco Use Types Packs/Day [...] encounter Miscellaneous Notes * Telephone Encounter - Caridad Lombardo RN - 04/12/2024 1:34 PM EST Call returned to Faina Brand to triage below. Reports having elevated BS 315mg/dL , fasting before meds. Pt checked BS while concrete fence builder with this senior medical writer, reports BS of 91mg/dL . Pt had half a sandwichabout 11:12pm. Pt is on both Trulicity (dose given today). Pt also had 86 units of Tresiba administered by [facility]. Pt denies any sx of hyperglycemia. States had high sugar last night. Denies any UTI or vaginal sx. NO KNIGHT or dry mouth. Pt advised to return call if BS > 200s consistently. Reviewed increase water intake and low sugar and low carb diet. Call to [facility], confirms above, states BS yesterdayfasting was 250mg/dL. [facility] goes in daily in the AM for medicaid plan compliance director that dial for Tresiba is accurate. Mirella advised that pt instructed on when to return call and that message to be routed to PCP and teamfor review and further follow up on DM management as needed. Protocol Used: Diabetes - High Blood Sugar (Adult) Protocol-Based Disposition: Home Care Positive Triage Question: * Blood glucose > 300 mg/dL (16.7 mmol/L) * All higher-acuity triage questions were negative Care Advice Discussed: * High Blood Sugar (Hyperglycemia) * Treatment - Liquids * Continue Insulin * Diabetes Pills * Reasons To Call Back - Blood glucose over 300 mg/dL (16.7 mmol/L), two or more times in a row. - Rapid breathing occurs - You become worse * Telephone Encounter - Edmond Henry - 04/12/2024 1:09 PM EST Symptom: High Blood Sugar - Caller Reports Outcome: Talk to a nurse or provider within 15 minutes Reason: Known blood sugar above 300 The caller accepted this outcome. documented in this encounter Plan of Treatment Upcoming Encounters Date Type Department Care Team (Late st Contact Info) Description 07/15/2024 10:15 AM EDT Office Visit [facility] MEDICINE [address] [place] [address] Reyna Slaughter NP [address] [place] [address] documented as of this encounter Visit Diagnoses Not on filedocumented in this encounter Additional Health Concerns Assessment Noted Time PHQ-9 Depression Total Score: 0 04/22/19 24 2:34 PM EST documented as of this encounter Care Teams Lumber Loader Relationship Specialty Start Date End Date Reyna Slaughter NP [address] [place] [address] PCP - General Family Medicine 03/03/23 [facility] 07/03/15 documented as of this encounter
--- OUTSIDE RECORDS SUMMARY | 2024-04-20 14:33 | XMS_ITS | Encounter Summary ---
Author Organization [employer] Address [address] [place] [address] 7t [place] [address] Care Team Providers Care Shipping & Receiving Lead Name Role Phone Reyna Slaughter NP Primary Care Provider [phone] Reason for Referral * Imaging (Routine) - Authorized Specialty Diagnoses / Procedures Referred By Zoey hines Referred To Contact Radiology Diagnoses Encounter for screening mammogram for malignant neoplasm of breast Procedures BI Mammogram Screening Tomosynthesis Bilateral Reyna Slaughter NP [address] [place] [address] Phone: tel: fax: [address] Phone: tel: fax: Referral ID Status Reason Start Date Expiration Date V isits Requested Visits Authorized [id number] Authorized 04/20/2024 04/20/2025 1 1 Reason for Visit * Reason Comments Follow-up Encounter Details Date Type Department Care Team (Late st Contact Info) Description 04/20/2024 10:45 AM EST Office Visit [facility] [address] [place] [address] Reyna Slaughter NP [address], [place] [phone] Screening for colon cancer (Primary Dx); Type 2 diabetes mellitus with other specified complication, with long-term current use of insulin (CMS/HCC); Screening examination for STI; Encounter for health-related screening; Encounter for screening mammogram for malignant neoplasm of breast; Tinea pedis of both feet Social History Tobacco Use Types Packs/Day Years [...] AM EDT documented as of this encounter Last Filed Vital Signs Vital Sign Reading [...] Mass Index 30.36 04/20/2024 11:23 AM EST documented in this encounter Plan of Treatment Upcoming Encounters Date Type Department Care Team (Late st Contact Info) Description 07/15/2024 10:15 AM EDT Office Visit [facility] [address] [place] [address] Reyna Slaughter NP [address] [place] [address] Scheduled Orders Name Type Priority Associated Diagnoses Orde r Schedule BI Mammogram Screening Tomosynthesis Bilateral Imaging Routine Encounter for screening mammogram for malignant neoplasm of breast Expected: 04/20/2024, Expires: 06/18/2025 Cologuard?? colon cancer screening Lab Routine Screening for colon cancer Ordered: 04/20/2024 TSH W/Reflex to FT4 Lab Routine Encounter for health-related screening Expected: 04/20/2024 (Approximate), Expires: 04/20/2025 Lipid Panel, Standard Lab Routine Type 2 diabetes mellitus with other specified complication, with long-term current use of insulin (CMS/HCC) Expected: 04/20/2024 (Approximate), Expires: 04/20/2025 Hepatitis B Core Antibody, Total Lab Routine Screening examination for STI Expected: 04/20/2024 (Approximate), Expires: 04/20/2025 Hepatitis B Surface Antibody, Qualitative Lab Routine Screening examination for STI Expected: 04/20/2024 (Approximate), Expires: 04/20/2025 Hepatitis B surface antigen, EIA Lab Routine Screening examination for STI Expected: 04/20/2024 (Approximate), Expires: 04/20/2025 Syphilis Screen Lab Routine Screening examination for STI Expected: 04/20/2024 (Approximate), Expires: 04/20/2025 HIV-1/2 Antigen and Antibodies, Fourth Generation, with Reflexes Lab Routine Screening examination for STI Expected: 04/20/2024 (Approximate), Expires: 04/20/2025 Hepatitis C Antibody with Reflex to HCV, RNA, Quantitative, Real-Time PCR Lab Routine Screening examination for STI Expected: 04/20/2024 (Approximate), Expires: 04/20/2025 Chlamydia/N. Gonorrhoeae RNA, TMA, Urine Microbiology Routine Screening examination for STI Expected: 04/20/2024 (Approximate), Expires: 04/20/2025 documented as of this encounter Procedures Procedure Name Priority Date/Time Associated Diagnosis Comments ALBUMIN, RANDOM URINE W/CREATININE Routine 04/20/2024 12:16 PM EST Type 2 diabetes mellitus with other specified complication, with long-term current use of insulin ([facility]) CBC WITH AUTO DIFFERENTIAL Routine 04/20/2024 12:16 PM EST Encounter for health-related screening COMPREHENSIVE METABOLIC PANEL Routine 04/20/2024 12:16 PM EST Type 2 diabetes mellitus with other specified complication, with long-term current use of insulin ([facility]) POCT GLYCATED HEMOGLOBIN, TOTAL Routine 04/20/2024 11:29 AM EST Type 2 diabetes mellitus with other specified complication, with long-term current use of insulin ([facility]) POCT GLUCOSE Routine 04/20/2024 11:28 AM EST Type 2 diabetes mellitus with other specified complication, with long-term current use of insulin ([facility]) documented in this encounter Results * (ABNORMAL) Comprehensive Metabolic Panel (04/20/2024 12:16 PM EST) Sodium 139 135 - 145 mmol/L [facility] Potassium 3.4 3.3 - 5.1 mmol/L [facility] Chloride 109(H) 96 - 108 mmol/L [facility] Carbon Dioxide 25 22 - 29 mmol/L [facility] Anion Gap 8(L) 12 - 20 [facility] Urea Nitrogen (BUN) 14 9 - 16 mg/dL [facility] Creatinine, Serum 0.75 0.5 - 1.4 mg/dL [facility] Estimated Glomerular Filt Rate >60 [facility] Comment:Chronic Kidney Disea se: Estimated GFR < 60 mL/min/[id number] Kidney Disease: Estimated GFR < 15 mL/min/1.73m2 Glucose 68 60 - 115 mg/dL [facility] Calcium 10.2 8.4 - 10.2 mg/dL [facility] Bilirubin, Total 0.4 0.0 - 1.0 mg/dL [facility] Aspartate Amino Transferase 18 5 - 31 U/L [facility] Alanine Aminotransferase 20 0 - 31 U/L [facility] Total Protein 7.3 6.5 - 8.0 g/dL [facility] Albumin Level 4.3 3.5 - 5.0 g/dL [facility] Alkaline Phosphatase 81 39 - 117 U/L [facility] Blood Venous blood specimen / Unknown 04/20/2024 12:16 PM EST 04/20/2024 1:40 PM EST [employer] ELECTION ASSISTANT LAB BLOOD ORDERABLES Final Resu lt Performing Organization Address [facility] de Phone Number [facility] [address] [place] [phone] * Albumin, Random Urine W/Creatinine (04/20/2024 12:16 PM EST) Creatinine, Urine 60.77 mg/dL [facility] Microalbumin Urine 5.0 mg/L [facility] Microalbum Creatinine Ratio Ur 8.2 <30 ug/mg cr [facility] Comment:Albumin/Creatinine R atio Reference Ranges: Normal: < 30 ug/mg creatinine Microalbuminuria: 30 - 300 ug/mg creatinineClinical Albuminuria: > 300 ug/mg creatinine Urine (Urine, Random) 04/20/2024 12:16 PM EST 04/20/2024 1:13 PM EST [employer] ELECTION ASSISTANT LAB URINE ORDERABLES Final Resu lt Performing Organization Address [facility] Co de Phone Number [facility] [address] [place] [phone] * (ABNORMAL) CBC auto differential (04/20/2024 12:16 PM EST) White Blood Count 12.1(H) 4.8 - 10.8 X10*3/uL [facility] Red Blood Count 4.65 4.20 - 5.50 X10*6/uL [facility] Hemoglobin 13.0 12.0 - 16.0 g/dl [facility] Hematocrit 39.6 37.0 - 47.0 % [facility] Mean Corpuscular Volume 85.2 80.0 - 98.0 fL [facility] Mean Corpuscular Hemoglobin 28.0 27.0 - 33.0 pg [facility] Mean Corpuscular HGB Conc 32.8 31.0 - 35.0 g/dl [facility] Red Cell Distribution Width 13.7 11.0 - 16.0 % [facility] Platelet Count 257 160 - 400 X10*3/uL [facility] Mean Platelet Volume 11.1 9.4 - 12.3 fL [facility] Neutrophils Percent Auto 61.8 45 - 73 % [facility] Imm Gran Pct Auto 0.3 0.0 - 0.4 % [facility] Lymphocytes Percent Auto 29.7 20 - 40 % [facility] Monocytes Percent Auto 5.4 2 - 11 % [facility] Eosinophils Percent Auto 2.3 0 - 4 % [facility] Basophils Percent Auto 0.5 0 - 2 % [facility] NRBC Pct Auto 0.0 0.0 - 0.2 /100WBC [facility] Neutrophils Absolute Auto 7.5 2.0 - 8.3 x10*3/uL [facility] Imm Gran Abs Auto 0.04(H) 0.00 - 0.03 X10*3/uL [facility] Lymphocytes Absolute Auto 3.6 1.2 - 4.9 X10*3/uL [facility] Monocytes Absolute Auto 0.7 0.1 - 1.2 X10*3/uL [facility] Eosinophils Absolute Auto 0.3 0.0 - 0.4 X10*3/uL [facility] Basophils Absolute Auto 0.1 0.0 - 0.2 X10*3/uL [facility] NRBC Abs Auto 0.000 0.0 - 0.012 X10*3/uL [facility] Blood Venous blood specimen / Unknown 04/20/2024 12:16 PM EST 04/20/2024 1:38 PM EST us Reyna Slaughter ELECTION ASSISTANT LAB BLOOD ORDERABLES Final Resu lt [facility] [address] [place] [address] [phone] * (ABNORMAL) POCT HGB A1C (04/20/2024 11:29 AM EST) Hemoglobin A1C 6.4(A) 4.0 - 6.0 % [employer] Media Lot # [id number] Lot# Expiration Date [id number] Blood 04/20/2024 11:2 9 AM EST Reyna Slaughter ELECTION ASSISTANT POINT OF CARE TEST ENTER/EDIT O RDERABLES Final Result * POCT Glucose (04/20/2024 11:28 AM EST) Glucose Blood, POC 81 60 - 200 mg/dL [employer] Lot # [id number] Lot# Expiration Date 53,025 Blood Capillary blood specimen / Unknown 04/20/2024 11:28 AM EST Reyna Suresh ELECTION ASSISTANT POINT OF CARE TEST ENTER/EDIT O RDERABLES Final Result documented in this encounter Visit Diagnoses Diagnosis Screening for colon cancer- Primary Special screening for malignant neoplasms, colon Type 2 diabetes mellitus with other specified complication, with long-term current use of insulin ([facility]) Screening examination for STI Encounter for health-related screening Encounter for screening mammogram for malignant neoplasm of breast Tinea pedis of both feet documented in this encounter Additional Health Concerns Assessment Noted Time PHQ-9 Depression Total Score: 0 04/20/19 25 11:35 AM EST documented as of this encounter Care Teams Shipping & Receiving Lead Relationship Specialty Start Date End Date Reyna Slaughter NP [address] [place] [address] PCP - General Family Medicine 03/03/23 [facility] 07/03/15 documented as of this encounter
--- OUTSIDE RECORDS SUMMARY | 2024-04-20 14:33 | XMS_ITS | Encounter Summary ---
Author Organization [employer] Address [address] [place] [address] [address], [place] [address] Care Team Providers Care Anodize Machine Operator Name Role Phone Terrence Paredes Primary Care Provider Unavail able Natalia Johnson MD Primary Care Pro vider Reyna Slauhgter NP Primary Care Provider [phone] Encounter Details Date Type Department Care Team (Late st Contact Info) Description 04/18/2022 Orders Only [facility] [address] [place] [phone] Lisa Ozuna LPN Social History Tobacco Use [...] 10:15 AM EDT Office Visit [facility] [address] [place] [phone] Reyna Slaughter NP [address] [place] [address] documented as of this encounter Visit Diagnoses Not on filedocumented in this encounter Care Teams Anodize Machine Operator Relationship Specialty Start Date End Date Terrence Paredes AGNP PCP - General Family Medicine 02/06/22 12/10/22 Natalia Johnson MD [address] [place] [address] PCP - General Internal Medicine 12/11/22 03/02/23 Reyna Slaughter NP [address] [place] [address] PCP - General Family Medicine 03/03/23 [facility] 07/03/15 documented as of this encounter
--- OUTSIDE RECORDS SUMMARY | 2024-04-20 14:33 | XMS_ITS | Encounter Summary ---
Author Organization [employer] Address [address] [facility] 7t [place] [address] Care Team Providers Care Manager French Name Role Phone Natalia Johnson MD Primary Care Pro vider Reyna Slaughter NP Primary Care Provider [phone] Reason for Visit * Reason Comments Med Refill Encounter Details Date Type Department Care Team (Late st Contact Info) Description 01/20/2023 Refill [facility] [address] [place], [place] [phone] Name, MD Nixon [address] [place] [address] Anxiety Social History Tobacco Use Types Packs/Day [...] the past 12 months, has t he [employer] gas, oil or water company threatened to [...] Description 07/15/2024 10:15 AM EDT Office Visit [facility] [address] [place] [address] Reyna Slaughter NP [address] [place] [address] documented as of this encounter Visit Diagnoses Diagnosis Anxiety Anxiety state, unspecified documented in this encounter Additional Health Concerns Assessment Noted Time PHQ-9 Depression Total Score: 2 06/12/19 23 2:44 PM EDT documented as of this encounter Care Teams Manager French Relationship Specialty Start Date End Date Natalia Johnson MD [address] [place] [phone] PCP - General Internal Medicine 12/11/22 03/02/23 Reyna Slaughter NP [address] [place] [address] PCP - General Family Medicine 03/03/23 [facility] 07/03/15 documented as of this encounter
--- OUTSIDE RECORDS SUMMARY | 2024-04-20 14:33 | XMS_ITS | Encounter Summary ---
Author Organization [employer] Address [address] [facility] 7t [place] [address] Care Team Providers Care Brood Station Manager Name Role Phone Reyna Slaughter NP Primary Care Provider [phone] Encounter Details Date Type Department Care Team (Late st Contact Info) Description 03/30/2024 Orders Only [facility] [address] [place], [place] [phone] Reyna Slaughter NP [address] [place] [address] Type 2 diabetes mellitus with diabetic polyneuropathy, with long-term current use of insulin ([facility]) Social History Tobacco Use Types [...] Description 07/15/2024 10:15 AM EDT Office Visit [facility] [address] [place] [address] Reyna Slaughter NP [address] [place] [address] documented as of this encounter Visit Diagnoses Diagnosis Type 2 diabetes mellitus with diabetic polyneuropathy, with long-term current use of insulin ([facility]) documented in this encounter Additional Health Concerns Assessment Noted Time PHQ-9 Depression Total Score: 0 04/22/19 24 2:34 PM EST documented as of this encounter Care Teams Brood Station Manager Relationship Specialty Start Date End Date Reyna Slaughter NP [address] [place] [address] PCP - General Family Medicine 03/03/23 [facility] 07/03/15 documented as of this encounter
--- OUTSIDE RECORDS SUMMARY | 2024-04-20 14:33 | XMS_ITS | Clinical Summary ---
Author Organization [facility] ity Address [address] [place] [address] Care Team Providers Care Mail Carrier Name Role Phone Unavailable Primary Care Provider Unavailabl e Social History Tobacco Use Types Packs/Day Years Used Date Smoking Tobacco: Never Assessed Sex and Gender Information Value Date Recorded Sex Assigned at Not on file Gender Identity Not on file Sexual Orientation Not on file Plan of Treatment Health Maintenance Due Date Last Done Comments Breast Cancer Screening 1968 DTaP,Tdap,and Td Vaccines (1 - Tdap) 1987 Hepatitis B Vaccines (1 of 3 - 19+ 3-dose series) 1987 Cervical Cancer Screening: P ap Smear 1989 Zoster Vaccines (1 of 2) 2018 Colorectal Cancer Screening: Colonoscopy 02/19/2022 Depression Screening 02/19/2022 HIV Screening 02/19/2022 Hepatitis C Screening 02/19/2022 Social Influencers of Health Screening 02/19/2022 COVID-19 Vaccine (2023-2 5 season) 2023 Influenza Vaccine (#1) 2023 HIB Vaccines Aged Out No longer eligi [...] on patient's age to complete this topic MMR Vaccines Aged Out No longer eligi ble based on patient's age to complete this topic Meningococcal ACWY Vaccine Aged Out N o longer eligible based on patient's age to complete this topic Pneumococcal Vaccine: Pediat rics (0 to 5 Years) and At-Risk Patients (6 to 64 Years) Aged Out No longer eligible b ased on patient's age to complete this topic RSV Immunization Patients Un dalia 20 months Aged Out No longer eligible b ased on patient's age to complete this topic Varicella Vaccines Aged Out No longer eligible based on patient's age to complete this topic
--- OUTSIDE RECORDS SUMMARY | 2024-04-20 14:33 | XMS_ITS | Encounter Summary ---
Author Organization [employer] Address [address] [facility] 7t [place] [address] Care Team Providers Care Ecologist Technician Name Role Phone Reyna Slaughter NP Primary Care Provider [phone] Reason for Visit * Reason Comments Med Refill Encounter Details Date Type Department Care Team ([facility] st Contact Info) Description 03/26/2024 Refill [facility] [address] [place] [address] Reyna Slaughter NP [address] [place] [address] Diabetic polyneuropathy associated with type 2 diabetes mellitus (CMS/HCC) Social History Tobacco Use Types Packs/Day [...] Description 07/15/2024 10:15 AM EDT Office Visit [facility] [address] [place] [address] Reyna Slaughter NP [address] [place] [address] documented as of this encounter Visit Diagnoses Diagnosis Diabetic polyneuropathy associated with type 2 diabetes mellitus (CMS/HCC) documented in this encounter Additional Health Concerns Assessment Noted Time PHQ-9 Depression Total Score: 0 04/22/19 24 2:34 PM EST documented as of this encounter Care Teams Ecologist Technician Relationship Specialty Start Date End Date Reyna Slaughter NP [address] [place] [address] PCP - General Family Medicine 03/03/23 [facility] 07/03/15 documented as of this encounter
--- OUTSIDE RECORDS SUMMARY | 2024-04-20 14:33 | XMS_ITS | Encounter Summary ---
Author Organization [employer] Address [address] [facility] 7t [place] [address] Care Team Providers Care Skein Inspector Name Role Phone Terrence Paredes Primary Care Provider Unavail able Natalia Johnson MD Primary Care Pro vider Reyna Slaughter NP Primary Care Provider [phone] Reason for Visit * Reason Onset Date Comments Call request 06/13/2022 Encounter Details Date Type Department Care Team (Late st Contact Info) Description 06/13/2022 Telephone [facility] [address] [place] [address] Terrence Paredes AGNP Call request Social History Tobacco Use Types Packs/Day Years [...] encounter Miscellaneous Notes * Telephone Encounter - Juliana Bunn RN - 06/16/2022 10:26 AM EDT Call to Nisa who wanted to update pt's primary, as she was formerly a [facility] pt, and send over someforms that needed signing from PCP. Given fax number. * Telephone Encounter - Denis Varner - 06/13/2022 12:20 PM EDT Tc from Nisa with [facility] requesting a call from a nurse in regards to towards pt. Nisa was not very specific for why the call. Please contact Nisa at [phone] documented in this encounter Plan of Treatment Upcoming Encounters Date Type Department Care Team (Late st Contact Info) Description 07/15/2024 10:15 AM EDT Office Visit [facility] [address] [place] [phone] Reyna Slaughter NP [address] [place] [address] documented as of this encounter Visit Diagnoses Not on filedocumented in this encounter Additional Health Concerns Assessment Noted Time PHQ-9 Depression Total Score: 2 06/12/19 2:44 PM EDT documented as of this encounter Care Teams Skein Inspector Relationship Specialty Start Date End Date Terrence Paredes AGNP PCP - General Family Medicine 02/06/22 12/10/22 Natalia Johnson MD [address] [place] [address] PCP - General Internal Medicine 12/11/22 03/02/23 Reyna Slaughter NP [address] [place] [address] PCP - General Family Medicine 03/03/23 [facility] 07/03/15 documented as of this encounter
--- OUTSIDE RECORDS SUMMARY | 2024-04-20 14:33 | XMS_ITS | Encounter Summary ---
Author Organization [employer] Address [address] [facility] 7t [place] [address] Care Team Providers Care Print Support Specialist Name Role Phone Reyna Slaughter ELAINE Primary Care Provider [phone] Reason for Visit * Reason Comments Med Refill Encounter Details Date Type Department Care Team (Late st Contact Info) Description 03/30/[address] [facility] [address] [place] [address] Terrence Paredes AGNP Social History Tobacco Use Types Packs/Day Years [...] Telephone Encounter - Reyna Slaughter NP - 03/31/2023 11:35 AM EST Approving, but needs appt for additional refills. documented in this encounter Plan of Treatment Upcoming Encounters Date Type Department Care Team (Late st Contact Info) Description 07/15/2024 10:15 AM EDT Office [address] [facility] [address] [place] [address] Reyna Slaughter NP [address] [place] [address] documented as of this encounter Visit Diagnoses Not on filedocumented in this encounter Additional Health Concerns Assessment Noted Time PHQ-9 Depression Total Score: 2 06/12/19 23 2:44 PM EDT documented as of this encounter Care Teams Print Support Specialist Relationship Specialty Start Date End Date Reyna Slaughter NP [address] [place] [address] PCP - General Family Medicine 03/03/23 [facility] 07/03/15 documented as of this encounter
[2024-04-20 17:08] LABS: CT PCR NOT DETECTED (Not Detect.); NG PCR NOT DETECTED (Not Detect.)
[2024-04-21 05:25] LABS: Syphilis Screen Nonreactive (Nonreactive)
[2024-04-21 05:38] LABS: HBS Num1 288.87 mIU/mL (0-7.99); HBc Num1 0.15 S/CO (0.00-0.79); HBsAGNum1 0.31 S/CO (0.00-0.99); HIV AB/AG Nonreactive (Nonreactive); HIV Num 1 0.05 S/CO (0.00-0.99); Hepatitis B Core Antibody Nonreactive (Nonreactive); Hepatitis B Surface Antigen Negative (Negative); ~HepC Num1 0.07 S/CO (0.00-0.79); ~Hepatitis B Surface Antibody REACTIVE (Nonreactive); ~Hepatitis C Antibody Nonreactive (Nonreactive)
== END 2024-04-20 12:13 | disposition home or self-care (01) ==
LOC: HO.HHCL 12:12
PROVIDERS: Visit Provider Nurse Practitioner
DX: Z13.9 Encounter for screening, unspecified (principal); Z11.59 Encounter for screening for other viral diseases; E11.69 Type 2 diabetes mellitus with other specified complication; Z79.4 Long term (current) use of insulin; E78.00 Pure hypercholesterolemia, unspecified; Z20.2 Contact with and (suspected) exposure to infections with a predominantly sexual mode of transmission; Z72.89 Other problems related to lifestyle
CPT/HCPCS: 80053; 80061; 82043; 82570; 84439; 84443; 85025; 86704; 86706; 86780; 86803; 87340; 87389; 87491; 87591

== ENCOUNTER 2024-09-12 13:55 | Outpatient (REF) | payer MEDICARE, MEDICAID, SELFPAY ==
--- NOTE | ~2024-09-12 | MM_ITS ---
EXAMINATION: MM SCREENING DIGITAL BREAST TOMOSYNTHESIS, BILATERAL CLINICAL INFORMATION: Screening. Asymptomatic. COMPARISON: Mammography: Comparison is made with available priors TECHNIQUE: Digital breast mammography with tomosynthesis is performed in both the craniocaudal and mediolateral oblique views along with computer-aided detection (CAD). FINDINGS: There are scattered areas of fibroglandular density (ACR BI-RADS breast composition Category b). There are no significant masses, abnormal calcifications, or other abnormalities. MM/MM tomosynthesis screening BI IMPRESSION: No mammographic evidence of malignancy. ASSESSMENT: BI-RADS BI-RADS 1 - Negative RECOMMENDATION: Routine annual mammography screening. 1 year F/U This examination should not preclude the clinical evaluation of a suspicious palpable abnormality. This patient's information was entered into a reminder system with a target due date for their next mammogram. Electronically signed by: Yessy Olguin DO 09/16/2024 03:20 PM EDT
--- OUTSIDE RECORDS SUMMARY | 2024-09-12 15:27 | XMS_ITS | Encounter Summary ---
Author Organization [employer] Address [address] [facility] 7t [place] [address] Care Team Providers Care Fish Hatchery Worker Name Role Phone Reyna Slaughter AUTO DETAILER Primary Care Provider [phone] Reason for Visit * Reason Comments Med Refill Encounter Details Date Type Department Care Team ([facility] st Contact Info) Description 02/10/2024 Refill [facility] [address] [place], [place] [phone] Reyna Slaughter NP [address] [place] [address] Chest pain, unspecified type Social History Tobacco [...] Care Team (Late st Contact Info) Description 10/14/2024 11:00 AM EDT Office Visit [facility] [address] [place] [address] Reyna Slaughter NP [address] [place] [address] documented as of this encounter Visit Diagnoses Diagnosis Chest pain, unspecified type documented in this encounter Additional Health Concerns Assessment Noted Time PHQ-9 Depression Total Score: 0 04/22/19 24 2:34 PM EST documented as of this encounter Care Teams Fish Hatchery Worker Relationship Specialty Start Date End Date Reyna Slaughter NP [address] [place] [address] PCP - General Family Medicine 03/03/23 [facility] 07/03/15 documented as of this encounter
== END 2024-09-12 13:56 | disposition home or self-care (01) ==
LOC: HO.MAMMO 13:55
PROVIDERS: Visit Provider Nurse Practitioner Family
DX: Z12.31 Encounter for screening mammogram for malignant neoplasm of breast (principal)
CPT/HCPCS: 77063; 77067

== ENCOUNTER → 2024-09-12 14:15 | Outpatient (BNV) | payer MEDICARE, MEDICAID, SELFPAY | PROVIDERS: Visit Provider Internal Medicine | DX: Z12.31 Encounter for screening mammogram for malignant neoplasm of breast (principal) | CPT/HCPCS: 77063; 77067 ==

== ENCOUNTER 2024-11-07 11:17 | Outpatient (REF) | payer MEDICARE, MEDICAID, SELFPAY ==
--- OUTSIDE RECORDS SUMMARY | 2024-11-07 12:36 | XMS_ITS | Encounter Summary ---
Author Organization [employer] Address [address] [place] [address] Care Team Providers Care Urologic Nurse Name Role Phone Reyna Slaughter COVERAGE ANALYST Primary Care Provider [phone] Reason for Visit * Reason Comments Med Refill Encounter Details Date Type Department Care Team ([facility] st Contact Info) Description 02/10/2024 Refill [facility] [address] [place], [place] [id number] Reyna Slaughter NP [address] [place] [address] Chest pain, unspecified type Social History Tobacco [...] as of this encounter Plan of Treatment Not on file documented as of this encounter Visit Diagnoses Diagnosis Chest pain, unspecified type documented in this encounter Additional Health Concerns Assessment Noted Time PHQ-9 Depression Total Score: 0 04/22/19 24 2:34 PM EST documented as of this encounter Care Teams Urologic Nurse Relationship Specialty Start Date End Date Reyna Slaughter NP [address] [place] [id number] PCP - General Family Medicine 03/03/23 [facility] 07/03/15 documented as of this encounter
--- OUTSIDE RECORDS SUMMARY | 2024-11-07 12:36 | XMS_ITS | Clinical Summary ---
Author Organization [facility] it Address [address] [place] [address] Care Team Providers Care Semiconductor Engineer Name Role Phone Unavailable Primary Care Provider Unavailabl e Social History Tobacco Use Types Packs/Day Years Used Date Smoking Tobacco: Never Assessed Comments Unknown Sex and Gender Information Value Date Recorded Sex Assigned at Not on file Legal Sex Female 2:32 PM EST Gender Identity Not on file Sexual Orientation Not on file Plan of Treatment Health Maintenance Due Date Last Done Comments Breast Cancer Screening 1968 DTaP,Tdap,and Td Vaccines (1 - Tdap) 1987 Hepatitis B Vaccines (1 of 3 - 19+ 3-dose series) 1987 Cervical Cancer Screening: P ap Smear 1989 Pneumococcal Vaccine: 50+ Ye ars (1 of 1 - PCV) 2018 Zoster Vaccines (1 of 2) 2018 Colorectal Cancer Screening: Colonoscopy 02/19/2022 HIV Screening 02/19/2022 Hepatitis C Screening 02/19/2022 Social Influencers of Health Screening 02/19/2022 COVID-19 Vaccine (1 - 2023-2 5 season) 2023 Depression Screening 03/23/2024 Influenza Vaccine (#1) 2024 HIB Vaccines Aged Out No longer eligi [...] patient's age to complete this topic Meningococcal B Vaccine Aged Out No l onger eligible based on patient's age to complete this topic RSV Immunization Patients Un dalia 20 months Aged Out No longer eligible b ased on patient's age to complete this topic Varicella Vaccines Aged Out No longer eligible based on patient's age to complete this topic
[2024-11-07 13:19] LABS: Alanine Aminotransferase 32 U/L (0-31); Albumin Level 4.3 g/dL (3.5-5.0); Alkaline Phosphatase 89 U/L (39-117); Anion Gap 11 (12-20); Aspartate Amino Transferase 25 U/L (5-31); Blood Urea Nitrogen 17 mg/dL (9-16); Calcium 10.4 mg/dL (8.4-10.2); Carbon Dioxide 26 mmol/L (22-29); Chloride 109 mmol/L (96-108); Cholesterol 180 mg/dL (<200); Estimated Glomerular Filt Rate > 60; HDL Cholesterol 45 mg/dL (>40); Potassium 3.9 mmol/L (3.3-5.1); Sodium 142 mmol/L (135-145); Total Protein 6.7 g/dL (6.5-8.0); Triglycerides 208 mg/dL (<150)
== END 2024-11-07 11:18 | disposition home or self-care (01) ==
LOC: HO.HHCL 11:17
PROVIDERS: PCP Nurse Practitioner; Visit Provider Nurse Practitioner
DX: E11.69 Type 2 diabetes mellitus with other specified complication (principal); Z79.4 Long term (current) use of insulin
CPT/HCPCS: 36415; 80053; 80061

== ENCOUNTER 2025-02-09 10:54 | Outpatient (REF) | payer MEDICARE, MEDICAID, SELFPAY ==
[2025-02-09 13:41] LABS: Alanine Aminotransferase 24 U/L (0-31); Albumin Level 4.5 g/dL (3.5-5.0); Alkaline Phosphatase 84 U/L (39-117); Anion Gap 10 (12-20); Aspartate Amino Transferase 22 U/L (5-31); Blood Urea Nitrogen 14 mg/dL (9-16); Calcium 10.9 mg/dL (8.4-10.2); Carbon Dioxide 27 mmol/L (22-29); Chloride 108 mmol/L (96-108); Estimated Glomerular Filt Rate > 60; Potassium 3.5 mmol/L (3.3-5.1); Sodium 141 mmol/L (135-145); Total Protein 7.2 g/dL (6.5-8.0)
[2025-02-09 13:51] LABS: Lithium 0.62 mmol/L (0.60-1.20)
[2025-02-09 13:52] LABS: Anion Gap 10 (12-20); Blood Urea Nitrogen 14 mg/dL (9-16); Calcium 10.8 mg/dL (8.4-10.2); Carbon Dioxide 26 mmol/L (22-29); Chloride 108 mmol/L (96-108); Estimated Glomerular Filt Rate > 60; Potassium 3.5 mmol/L (3.3-5.1); Sodium 140 mmol/L (135-145)
== END 2025-02-09 10:55 | disposition home or self-care (01) ==
LOC: HO.HHCL 10:54
PROVIDERS: PCP Nurse Practitioner; Referring Provider Psychiatry & Neurology Psychiatry; Visit Provider Nurse Practitioner
DX: R04.0 Epistaxis (principal); F31.70 Bipolar disorder, currently in remission, most recent episode unspecified; Z79.899 Other long term (current) drug therapy
CPT/HCPCS: 36415; 80048; 80053; 80178; 82248